=== PATIENT | male | born 1985 | race Caucasian/White ===

== ENCOUNTER 2020-07-14 11:45 | Emergency (ER) | payer OTHER, SELFPAY ==
[2020-07-14 12:41] VITALS: BP 145/67; PULSE 92; RESP 20; TEMP 37.2; O2SAT 94; BMI 60.6
--- NOTE | 2020-07-14 12:56 | XR_ITS ---
EXAMINATION: XR HAND, LEFT CLINICAL INFORMATION: Fall COMPARISON: None TECHNIQUE: PA, lateral, and oblique views of the left hand. FINDINGS: The bones and soft tissues are normal. No fracture. Alignment is anatomic. Joint spaces are maintained. No erosions or soft tissue calcifications. IMPRESSION: No fracture. No radiodense foreign body.
--- NOTE | 2020-07-14 13:04 | ED.EXTPRO ---
HPI - Extremity Problem General Chief complaint: Extremity Injury, Upper Stated complaint: Splinter Time Seen by Provider: 07/14/20 12:54 Source: patient Mode of arrival: ambulatory Limitations: no limitations History of Present Illness HPI Narrative: 34yoM presenting to the ED c c/o pain, swelling and redness to left hand ? splinter in his hand after he tripped over a pumkin and fell yesterday. Denies head injury or loc. Denies any other injuries, numbness, tinging, drainage or fevers. Related Data Previous Rx's Medication Instructions Recorded cephalexin [Keflex] 500 mg PO Q6H 10 Days #40 cap 07/14/20 doxycycline monohydrate 100 mg PO BID 10 Days #20 cap 07/14/20 tramadol 50 mg PO Q8H PRN #10 tab 07/14/20 Allergies Allergy/AdvReac Type Severity Reaction Status Date / Time No Known Allergies Allergy Mild N/A Verified 07/14/20 12:40 Review of Systems Review of Systems: Yes all other systems are reviewed and are negative Constitutional: Constitutional: Reports as per HPI Eyes: Eyes: Reports as per HPI ENT: Reports as per HPI Cardiovascular: Cardiovascular: Reports as per HPI Respiratory: Respiratory: Reports as per HPI Gastrointestinal: Gastrointestinal: Reports as per HPI Genitourinary: Genitourinary: Reports as per HPI Musculoskeletal: Musculoskeletal: Reports as per HPI Integumentary/Breasts: Skin/Breast: Reports as per HPI Neurologic: Reports as per HPI Psychiatric: Psychiatric: Reports as per HPI Endocrine: Endocrine: Reports as per HPI Hematologic/Lymphatic: Hematologic/Lymphatic: Reports as per HPI Allergic/Immunologic: Allergic/Immunologic: Reports as per HPI PMFSH Past Medical History Attestation statement: The following information was validated with the patient. Medical History Morbid obesity Sleep apnea Surgical History History of nasal surgery Hx of cholecystectomy Social History Social History Alcohol intake: never Smoking Status: Current every day smoker Smoked in Last 30 Days: Yes Use of substances other than those prescribed or required for medical reasons: Yes Substance Use Type: Marijuana Substance Use Frequency: Monthly Advance Directives: No Advance Directives Information Provided: Yes Physical Exam Vital Signs: Vital Signs: Vital Signs Temp Pulse Resp BP Pulse Ox 07/14/20 12:41 99.0 F 92 20 145/67 H 94 Body Mass Index 60.6 Const: General: cooperative, healthy appearing, comfortable, no acute distress, well developed, alert, awake and Physically active Nutritional Appearance: well nourished and obese Orientation/consciousness: patient oriented x3 Limitations: no limitations HENMT: Head: Yes normal to inspection, Yes No palpable skull fracture present, Yes normocephalic and Yes atraumatic Ears: hearing grossly normal bilaterally General nose exam: Normal external nose present Face and sinus: Yes normal facial exam Mouth: moist mucous membranes Eyes: General: appearance normal, both eyes and all related structures Visual Espitia: normal visual espitia by confrontation Alignment and Position: alignment normal Periorbital: periorbital findings normal Eyelids: Yes eyelids normal Conjunctivae: conjunctivae normal Sclerae: sclerae normal Pupils: Equal, round and reactive pupils present EOM: EOMs intact bilaterally Neck: Neck: Yes normal visual inspection, Yes full ROM, Yes no lymphadenopathy, Yes no meningeal signs, Yes trachea midline and Yes supple Chest: Chest palpation & inspection: normal inspection of the chest Resp: Effort & Inspection: normal respiratory effort and able to speak in complete sentences Auscultation: clear to auscultation bilaterally, no crackles, no rales, no rhonchi and no wheezes Cardio: Rate: regular rate Rhythm: regular rhythm Heart sounds: S1 normal heart sound present and S2 normal heart sound present Peripheral pulses: Peripheral pulses 2+ throughout GI: Inspection: Yes normal to inspection Palpation (GI): Soft to palpation, nontender and No hepatosplenomegaly present Percussion: Yes normal to percussion Auscultation: normal bowel sounds : General: Yes no CVA tenderness Back/Spine/Pelvis: Back: no CVA tenderness Cervical Spine: normal cervical lordosis and cervical ROM normal Thoracic/Lumbar Spine: thoracic and lumbar spine normal to inspection and thoraco-lumbar ROM normal Skin: General skin exam: no rashes or lesions noted, elasticity normal and turgor normal Trauma: no lacerations or abrasions Wounds: no wounds Hair: normal Nails: normal Neuro: General: patient oriented x3 and no meningeal signs Cranial nerves: Yes CN's II-XII intact bilaterally and Yes Equal, round and reactive pupils present Cognition (Neuro): normal cognition Gait exam (Neuro): Normal gait present Motor exam (neuro): 5/5 motor strength present throughout Extrem: General: Yes normal to inspection, Yes full ROM, Yes capillary refill normal, Yes no clubbing, cyanosis or edema, No no pedal edema, No no calf tenderness, Yes normal gait and No edema Right upper extremity: normal to inspection, full ROM, normal capillary refill and Extremity exam: right hand (puncture wound site c mild purulent drainage no obvious FB's noted. ) Details: normal capillary refill, neuromotor exam normal, neurosensory exam normal, tendon exam normal, tenderness, warmth and swelling; no edema Left upper extremity: normal to inspection, full ROM, normal capillary refill and hand (at the base of the thumb there is noted ); no edema Right lower extremity: normal to inspection, full ROM and normal capillary refill; no edema Left lower extremity: normal to inspection, full ROM and normal capillary refill; no edema Psych: Appearance: grossly normal and well kempt Mental Status: mental status grossly normal Speech and movement: Normal speech and movement present and Clear speech present Affect: normal affect Attitude: cooperative Thought process: Normal thought process present Thought content: Normal thought content present Insight: Good insight present (Psych) Judgement: Good judgement present (Psych) Procedures Abscess I/D Site: hand Side (if applicable): left Local Anesthetic: lidocaine 2% Amount of anesthesia used (mL): 5 Technique: needle aspiration and incised with blade Amount of fluid expressed (mL): 3 Sent for culture/gram staining?: No Irrigation: Yes Packing used?: none MDM - Extremity (Nontraumatic) Imaging Data hand xray: Attestation: I personally reviewed and interpreted this imaging study as follows: Radiologist's impression: IMPRESSION: No fracture. No radiodense foreign body. Discharge Plan Discharge Clinical Impression: Puncture wound of hand, Cellulitis, Abscess Patient Disposition: Home, Self-Care Instructions: Cellulitis (ED), Abscess (ED) Prescriptions: New doxycycline monohydrate 100 mg capsule 100 mg PO BID 10 Days Qty: 20 RF: 0 cephalexin [Keflex] 500 mg capsule 500 mg PO Q6H 10 Days Qty: 40 RF: 0 tramadol 50 mg tablet 50 mg PO Q8H PRN (Reason: pain) Qty: 10 RF: 0 Stand Alone Forms: Work/School Release Print Language: Nam[place]ian
[2020-07-14] MEDS: cephALEXin 500 MG CAPSULE PO (13:22)
[2020-07-14] MEDS: traMADoL HCL 50 MG TABLET PO (13:23)
--- NOTE | 2020-07-14 14:53 | PC.NURSE ---
Report given to oncoming nurse, Sara NORIEGA. No further questions from Sara NORIEGA. Provider aware.
[2020-07-14] MEDS: Lidocaine HCl 2 % MPF 5 ML VIAL SUBCUT (15:13)
--- NOTE | 2020-07-14 16:16 | PC.NURSE ---
PT LEFT HAND SPLINTER CLEANED NUMBED AND REMOVED BY CRISTEL CARRANZA. DSD APPLIED BY LILO KEYS.
== END 2020-07-14 16:09 | disposition home or self-care (01) ==
PROVIDERS: Emergency Provider Emergency Medicine
DX: S61.442A Puncture wound with foreign body of left hand, initial encounter (principal); W45.8XXA Other foreign body or object entering through skin, initial encounter; Y93.89 Activity, other specified; Y92.018 Other place in single-family (private) house as the place of occurrence of the external cause; Y99.9 Unspecified external cause status
CPT/HCPCS: 10120; 73130; 99283; 99284

== ENCOUNTER 2021-10-24 00:12 | Inpatient (IN) | payer OTHER, SELFPAY ==
[2021-10-24] VITALS (36 sets, daily range): BP systolic 107–174; BP diastolic 61–103; PULSE 68–115; RESP 14–26; TEMP 33–37.7; O2SAT 15–96; BMI 62.4; BMI 94.7
--- NOTE | ~2021-10-24 | XR_ITS ---
EXAMINATION: XR CHEST CLINICAL INFORMATION: Chest pain. Rule out pneumothorax. COMPARISON: Chest 10/25/2021 at 11:23 AM. TECHNIQUE: Frontal view of the chest was obtained. FINDINGS: Lungs are hypoexpanded with prominent pulmonary vascularity and patchy haziness in both lung bases likely airspace disease/effusion. There is a new endotracheal tube 4.6 cm above the trent. Right central venous catheter tip is in distal SVC. New enteric tube is likely below the diaphragm in stomach, however the distal segment of the enteric tube is not clearly visualized due to underpenetrated film. XR/XR chest 1V IMPRESSION: New endotracheal tube and enteric tube are likely in good position.. No change in right central venous catheter Bilateral lower lobe haziness is stable.
--- NOTE | ~2021-10-24 | XR_ITS ---
EXAMINATION: XR CHEST CLINICAL INFORMATION: Orogastric tube placement COMPARISON: Previous chest x-ray from yesterday TECHNIQUE: Frontal view of the chest was obtained. FINDINGS: There is an endotracheal tube with tip 5.5 cm above the trent. There is a nasogastric tube that projects over the proximal stomach. The tip is not seen. The cardiac silhouette is enlarged but stable. There is bilateral multilobar airspace disease, greatest at the lung bases. This does not appear appreciably changed. There may be small bilateral pleural effusions. There is no pneumothorax. No acute bone abnormality. XR/XR chest 1V IMPRESSION: Satisfactory position of endotracheal tube. Nasogastric tube tip projects over the proximal stomach, tip not seen. Stable enlargement of the cardiac silhouette and bilateral airspace disease.
--- NOTE | ~2021-10-24 | XR_ITS ---
EXAMINATION: XR CHEST CLINICAL INFORMATION: Shortness of breath COMPARISON: 09/14/2019 TECHNIQUE: Frontal view of the chest was obtained. FINDINGS: Lung volumes are low. Patchy diffuse bilateral airspace opacities. Possible small pleural effusions bilaterally. No pneumothorax. The cardiomediastinal silhouette appears prominent. XR/XR chest 1V IMPRESSION: Small pleural effusions. Patchy bilateral airspace opacities could be infectious or inflammatory. Alveolar edema is also a consideration.
--- NOTE | ~2021-10-24 | XR_ITS ---
EXAMINATION: XR CHEST CLINICAL INFORMATION: Status post intubation COMPARISON: October 24, 2021 and studies dating back to April 24, 2019 TECHNIQUE: AP portable view of the chest was obtained. FINDINGS: Endotracheal tube tip is seen approximately 4 cm above the trent. There is again noted to be diffuse interstitial and airspace disease which may be on the basis of infectious, inflammatory, or pulmonary edema process. No pneumothorax or significant pleural effusion. The cardiopericardial silhouette is enlarged. XR/XR chest 1V IMPRESSION: Endotracheal tube tip approximately 4 cm above the trent. No significant change in diffuse bilateral interstitial and airspace disease.
[2021-10-24 00:55] LABS: MANUAL DIFF FLAG NO
[2021-10-24 00:56] LABS: Basophils Percent Auto 0.1 % (0-2); Eosinophils Percent Auto 0.1 % (0-4); Hematocrit 50.1 % (42.0-52.0); Hemoglobin 14.3 g/dl (14.0-18.0); Imm Gran Abs Auto 0.26 X10*3/uL (0.00-0.03); Imm Gran Pct Auto 1.8 % (0.0-0.4); Lymphocytes Absolute Auto 1.7 X10*3/uL (1.2-4.9); Lymphocytes Percent Auto 11.2 % (20-40); Mean Corpuscular HGB Conc 28.5 g/dl (31.0-36.0); Mean Corpuscular Hemoglobin 25.7 pg (27.0-33.0); Mean Corpuscular Volume 90.1 fL (80.0-98.0); Mean Platelet Volume 9.6 fL (9.4-12.4); Monocytes Absolute Auto 1.3 X10*3/uL (0.1-1.2); Monocytes Percent Auto 8.6 % (2-11); Neutrophils Absolute Auto 11.6 x10*3/uL (2.0-8.3); Neutrophils Percent Auto 78.2 % (45-73); Platelet Count 300 X10*3/uL (160-400); Red Blood Count 5.56 X10*6/uL (4.60-5.80); Red Cell Distribution Width 19.5 % (11.0-16.0); White Blood Count 14.8 X10*3/uL (4.8-10.8)
[2021-10-24 01:11] LABS: INTERNATIONAL NORM RATIO 1.5 (0.9-1.1); Prothrombin Time 17.1 SEC (9.9-13.0)
[2021-10-24 01:12] LABS: Alanine Aminotransferase 32 U/L (0-40); Albumin Level 3.7 g/dL (3.5-5.0); Alkaline Phosphatase 81 U/L (39-117); Anion Gap 19 (12-20); Aspartate Amino Transferase 35 U/L (5-37); Bilirubin Total 0.8 mg/dL (0.0-1.0); Blood Urea Nitrogen 32 mg/dL (9-16); Calcium 8.9 mg/dL (8.4-10.2); Carbon Dioxide 26 mmol/L (22-29); Chloride 98 mmol/L (96-108); Creatinine Clr Calc Pharmacy 124.8; Estimated Glomerular Filt Rate 48; Glucose Random 117 mg/dL (60-115); Potassium 5.7 mmol/L (3.3-5.1); Sodium 137 mmol/L (135-145); Total Protein 7.4 g/dL (6.5-8.0)
[2021-10-24] MEDS: Naloxone HCl Nasal 4 MG SPRAY NOSTRILALT ×2 (01:14→04:39)
[2021-10-24] MEDS: ondansetron HCL 4 MG/2 ML VIAL IVPUSH ×2 (01:14→06:45)
--- NOTE | 2021-10-24 01:16 | ED_ITS ---
HPI - Overdose General Chief Complaint: Overdose Stated Complaint: CONFUSION Time Seen by Provider: 10/24/21 00:21 Source: patient, family and EMS Mode of arrival: EMS History of Present Illness HPI Narrative: This is a 36-year-old male who was brought in by EMS after they were called by his girlfriend when she found the patient unresponsive. EMS noted that patient was 60% on initial evaluation and was noted to have central cyanosis. They administered 4 mg of intranasal Narcan with good response and had to provide patient with 100% non-rebreather in order to maintain oxygen saturation. Patient denied any drug use or medical conditions to EMS and on arrival here although he was noted to be groggy and drowsy again reiterated that he does not use drugs denied drinking and denied any medical conditions. Related Data Previous Rx's Medication Instructions Recorded cephalexin 500 mg capsule (Keflex) 500 mg PO Q6H 10 Days #40 cap 07/14/20 doxycycline monohydrate 100 mg 100 mg PO BID 10 Days #20 cap 07/14/20 capsule tramadol 50 mg tablet 50 mg PO Q8H PRN #10 tab 07/14/20 Allergies Allergy/AdvReac Type Severity Reaction Status Date / Time No Known Allergies Allergy Mild N/A Verified 07/14/20 12:40 Review of Systems Review of Systems: Pertinent positives and negatives as stated in HPI 10 point review of systems is otherwise negative. [facility] Past Medical History Source: nursing notes reviewed Medical History Morbid obesity Sleep apnea Surgical History History of nasal surgery Hx of cholecystectomy Social History Social History Alcohol intake: never Use of substances other than those prescribed or required for medical reasons: Unknown Substance Use Type: Marijuana Advance Directives: No Advance Directives Information Provided: No Physical Exam Vital Signs: Vital Signs: Last Vital Signs Temp 97.8 F 10/24/21 05:55 Pulse 107 H 10/24/21 06:45 Resp 19 10/24/21 06:45 BP 163/103 H 10/24/21 06:45 Pulse Ox 90 L 10/24/21 06:45 BMI result Body Mass Index 94.7 VITAL SIGNS: Reviewed. GENERAL: Well developed, well nourished, in no acute distress. HEAD: Normocephalic/atraumatic EYES: PERRLA, EOMI OROPHARYNX: no oral lesions noted, posterior pharynx clear, dry mucosa NECK: Supple, no adenopathy LUNGS: Poor air entry, no appreciated rales, but rhonchi scattered, normal breath sounds. No adventitious sounds or accessory muscle use. SpO2<91> 100% non-rebreather CARDIOVASCULAR: Regular rate and rhythm without noted murmurs, no JVD but bilateral lower extremity pitting edema 1 to 2+ ABDOMEN: Obese, soft, non-tender, non-distended with bowel sounds. EXTREMITIES: Bilateral lower extremities demonstrate skin thickening and darkening consistent with chronic venous stasis SKIN: Inspection of the skin reveals no rashes, ulcerations, jaundice, pallor, or petechiae. NEUROLOGIC: GCS-14, following commands, and sensation to light touch were grossly intact x 4. Course Course Course Narrative: 36-year-old male with history and clinical presentation most consistent with likely overdose is a despite repeated then I will and was provided additional doses of Narcan in conjunction with Zofran. However despite these measures patient became more somnolent and it was felt that secondary to his sleepiness, body habitus the was likely retaining CO2 and was placed on initially CPAP but then transitioned to BiPAP with good response. On review of patient's prior charts he is noted to have sleep apnea. On review of all investigations he was noted to have a leukocytosis and initial lactic acid was elevated. He received 1 L IV fluids, antibiotics, although in total suspect that this may have been a component of reactivity due to patient's hypoxic states that he was found in. Attempts were made to obtain a urine sample by straight cath however this was unsuccessful. 0207: Soft restraints were put in place due to patient's agitation and continuing to remove his supplemental oxygen. Initial VBG showed CO2 retention with corresponding pH of 7.1 and on serial VBG although PCO 2 did improved pH continued at around 7.1. On review of subsequent chest x-ray despite patient being on BiPAP chest x-ray did appear to suggest a component of fluid overload in combination with elevated BNP. Patient was provided with 80 mg of Lasix. I discussed this case with Anesthesia as well as the oncoming provider, Dr Diaz, as patient was deemed to be a difficult intubation. Initial 4 mg additional IV Narcan was given for a total of 13 mg though on clinical exam pupils were not noted to be pinpoint with good respiratory response and improved tidal volumes. The decision was made to place patient on a Narcan drip. Patient signed out to Dr. Diaz and patient currently being evaluated by Anesthesia for intubation. Will discussed the case with Dr. Fernández as patient will require intubation and need to be admitted to the ICU. MDM - Overdose Lab Data Result diagrams: 10/24/21 00:51 10/24/21 00:51 Labs: Lab Results 10/24/21 10/24/21 10/24/21 Range/Units 00:22 00:51 00:51 WBC 14.8 H (4.8-10.8) X10*3/uL RBC 5.56 (4.60-5.80) X10*6/uL Hgb 14.3 (14.0-18.0) g/dl Hct 50.1 (42.0-52.0) % MCV 90.1 (80.0-98.0) fL MCH 25.7 L (27.0-33.0) pg MCHC 28.5 L (31.0-36.0) g/dl RDW 19.5 H (11.0-16.0) % Plt Count 300 (160-400) X10*3/uL MPV 9.6 (9.4-12.4) fL Immature Gran % (Auto) 1.8 H (0.0-0.4) % Neut % (Auto) 78.2 H (45-73) % Lymph % (Auto) 11.2 L (20-40) % [place] % (Auto) 8.6 (2-11) % Eos % (Auto) 0.1 (0-4) % Baso % (Auto) 0.1 (0-2) % Lymph # (Auto) 1.7 (1.2-4.9) X10*3/uL [place] # (Auto) 1.3 H (0.1-1.2) X10*3/uL Eos # (Auto) 0.0 (0.0-0.4) X10*3/uL Baso # (Auto) 0.0 (0.0-0.2) X10*3/uL Abs Immat Gran (auto) 0.26 H (0.00-0.03) X10*3/uL Absolute Neuts (auto) 11.6 H (2.0-8.3) x10*3/uL Absolute Nucleated RBC 0.290 H (0.0-0.012) X10*3/uL Nucleated RBC % (auto) 2.0 H (0.0-0.2) /100WBC PT (9.9-13.0) SEC INR (0.9-1.1) O2 Saturation % ABG pH at Pt Temp (7.35-7.45) ABG pH (Temp Correct) (7.35-7.45) ABG pCO2 at Pt Temp (32-45) mmHg ABG pCO2 (Temp Corrct (32-45) mmHg ABG pO2 at Pt Temp (83-108) mmHg ABG pO2 (Temp Correct (83-108) ABG HCO3 (22-26) mmol/L ABG Base Excess (Actual) mmol/L VBG pH (7.32-7.43) VBG pCO2 mmHg VBG pO2 mmHg VBG HCO3 (22-26) mmol/L VBG O2 Saturation % VBG Base Excess mmol/L Sodium 137 (135-145) mmol/L Potassium 5.7 H (3.3-5.1) mmol/L Chloride 98 (96-108) mmol/L Carbon Dioxide 26 (22-29) mmol/L Anion Gap 19 (12-20) BUN 32 H (9-16) mg/dL Creatinine 1.62 H (0.5-1.4) mg/dL Estim Creat Clear Calc 124.8 Estimated GFR 48 Random Glucose 117 H (60-115) mg/dL Lactic Acid (0.5-2.0) mmol/L Lactic Acid F/U @ 2Hr (0.5-2.0) mmol/L Calcium 8.9 (8.4-10.2) mg/dL Total Bilirubin 0.8 (0.0-1.0) mg/dL AST 35 (5-37) U/L ALT 32 (0-40) U/L Alkaline Phosphatase 81 (39-117) U/L B-Natriuretic Peptide 390 H (<100) pg/mL Total Protein 7.4 (6.5-8.0) g/dL Albumin 3.7 (3.5-5.0) g/dL Ethyl Alcohol mg/dL COVID-19 (ANNY) (Negative) COVID-19 Clin Com 10/24/21 10/24/21 10/24/21 Range/Units 00:55 00:55 00:55 WBC (4.8-10.8) X10*3/uL RBC (4.60-5.80) X10*6/uL Hgb (14.0-18.0) g/dl Hct (42.0-52.0) % MCV (80.0-98.0) fL MCH (27.0-33.0) pg MCHC (31.0-36.0) g/dl RDW (11.0-16.0) % Plt Count (160-400) X10*3/uL MPV (9.4-12.4) fL Immature Gran % (Auto) (0.0-0.4) % Neut % (Auto) (45-73) % Lymph % (Auto) (20-40) % [place] % (Auto) (2-11) % Eos % (Auto) (0-4) % Baso % (Auto) (0-2) % Lymph # (Auto) (1.2-4.9) X10*3/uL [place] # (Auto) (0.1-1.2) X10*3/uL Eos # (Auto) (0.0-0.4) X10*3/uL Baso # (Auto) (0.0-0.2) X10*3/uL Abs Immat Gran (auto) (0.00-0.03) X10*3/uL Absolute Neuts (auto) (2.0-8.3) x10*3/uL Absolute Nucleated RBC (0.0-0.012) X10*3/uL Nucleated RBC % (auto) (0.0-0.2) /100WBC PT 17.1 H (9.9-13.0) SEC INR 1.5 H (0.9-1.1) O2 Saturation % ABG pH at Pt Temp (7.35-7.45) ABG pH (Temp Correct) (7.35-7.45) ABG pCO2 at Pt Temp (32-45) mmHg ABG pCO2 (Temp Corrct (32-45) mmHg ABG pO2 at Pt Temp (83-108) mmHg ABG pO2 (Temp Correct (83-108) ABG HCO3 (22-26) mmol/L ABG Base Excess (Actual) mmol/L VBG pH (7.32-7.43) VBG pCO2 mmHg VBG pO2 mmHg VBG HCO3 (22-26) mmol/L VBG O2 Saturation % VBG Base Excess mmol/L Sodium (135-145) mmol/L Potassium (3.3-5.1) mmol/L Chloride (96-108) mmol/L Carbon Dioxide (22-29) mmol/L Anion Gap (12-20) BUN (9-16) mg/dL Creatinine (0.5-1.4) mg/dL Estim Creat Clear Calc Estimated GFR Random Glucose (60-115) mg/dL Lactic Acid 3.4 H* (0.5-2.0) mmol/L Lactic Acid F/U @ 2Hr (0.5-2.0) mmol/L Calcium (8.4-10.2) mg/dL Total Bilirubin (0.0-1.0) mg/dL AST (5-37) U/L ALT (0-40) U/L Alkaline Phosphatase (39-117) U/L B-Natriuretic Peptide (<100) pg/mL Total Protein (6.5-8.0) g/dL Albumin (3.5-5.0) g/dL Ethyl Alcohol mg/dL COVID-19 (ANNY) Negative (Negative) COVID-19 Clin Com See Note 10/24/21 10/24/21 10/24/21 Range/Units 02:09 02:17 03:40 WBC (4.8-10.8) X10*3/uL RBC (4.60-5.80) X10*6/uL Hgb (14.0-18.0) g/dl Hct (42.0-52.0) % MCV (80.0-98.0) fL MCH (27.0-33.0) pg MCHC (31.0-36.0) g/dl RDW (11.0-16.0) % Plt Count (160-400) X10*3/uL MPV (9.4-12.4) fL Immature Gran % (Auto) (0.0-0.4) % Neut % (Auto) (45-73) % Lymph % (Auto) (20-40) % [place] % (Auto) (2-11) % Eos % (Auto) (0-4) % Baso % (Auto) (0-2) % Lymph # (Auto) (1.2-4.9) X10*3/uL [place] # (Auto) (0.1-1.2) X10*3/uL Eos # (Auto) (0.0-0.4) X10*3/uL Baso # (Auto) (0.0-0.2) X10*3/uL Abs Immat Gran (auto) (0.00-0.03) X10*3/uL Absolute Neuts (auto) (2.0-8.3) x10*3/uL Absolute Nucleated RBC (0.0-0.012) X10*3/uL Nucleated RBC % (auto) (0.0-0.2) /100WBC PT (9.9-13.0) SEC INR (0.9-1.1) O2 Saturation % ABG pH at Pt Temp (7.35-7.45) ABG pH (Temp Correct) (7.35-7.45) ABG pCO2 at Pt Temp (32-45) mmHg ABG pCO2 (Temp Corrct (32-45) mmHg ABG pO2 at Pt Temp (83-108) mmHg ABG pO2 (Temp Correct (83-108) ABG HCO3 (22-26) mmol/L ABG Base Excess (Actual) mmol/L VBG pH 7.17 L* (7.32-7.43) VBG pCO2 99 mmHg VBG pO2 127 mmHg VBG HCO3 37 H (22-26) mmol/L VBG O2 Saturation 98.0 % VBG Base Excess 4.2 mmol/L Sodium (135-145) mmol/L Potassium (3.3-5.1) mmol/L Chloride (96-108) mmol/L Carbon Dioxide (22-29) mmol/L Anion Gap (12-20) BUN (9-16) mg/dL Creatinine (0.5-1.4) mg/dL Estim Creat Clear Calc Estimated GFR Random Glucose (60-115) mg/dL Lactic Acid (0.5-2.0) mmol/L Lactic Acid F/U @ 2Hr 1.1 (0.5-2.0) mmol/L Calcium (8.4-10.2) mg/dL Total Bilirubin (0.0-1.0) mg/dL AST (5-37) U/L ALT (0-40) U/L Alkaline Phosphatase (39-117) U/L B-Natriuretic Peptide (<100) pg/mL Total Protein (6.5-8.0) g/dL Albumin (3.5-5.0) g/dL Ethyl Alcohol < 10 mg/dL COVID-19 (ANNY) (Negative) COVID-19 Clin Com 10/24/21 10/24/21 Range/Units 03:41 05:59 WBC (4.8-10.8) X10*3/uL RBC (4.60-5.80) X10*6/uL Hgb (14.0-18.0) g/dl Hct (42.0-52.0) % MCV (80.0-98.0) fL MCH (27.0-33.0) pg MCHC (31.0-36.0) g/dl RDW (11.0-16.0) % Plt Count (160-400) X10*3/uL MPV (9.4-12.4) fL Immature Gran % (Auto) (0.0-0.4) % Neut % (Auto) (45-73) % Lymph % (Auto) (20-40) % [place] % (Auto) (2-11) % Eos % (Auto) (0-4) % Baso % (Auto) (0-2) % Lymph # (Auto) (1.2-4.9) X10*3/uL [place] # (Auto) (0.1-1.2) X10*3/uL Eos # (Auto) (0.0-0.4) X10*3/uL Baso # (Auto) (0.0-0.2) X10*3/uL Abs Immat Gran (auto) (0.00-0.03) X10*3/uL Absolute Neuts (auto) (2.0-8.3) x10*3/uL Absolute Nucleated RBC (0.0-0.012) X10*3/uL Nucleated RBC % (auto) (0.0-0.2) /100WBC PT (9.9-13.0) SEC INR (0.9-1.1) O2 Saturation 79.0 % ABG pH at Pt Temp 7.15 L* (7.35-7.45) ABG pH (Temp Correct) 7.16 L* (7.35-7.45) ABG pCO2 at Pt Temp 116 H* (32-45) mmHg ABG pCO2 (Temp Corrct 112 H* (32-45) mmHg ABG pO2 at Pt Temp 59 L (83-108) mmHg ABG pO2 (Temp Correct 57 L (83-108) ABG HCO3 41 H (22-26) mmol/L ABG Base Excess (Actual) 6.7 mmol/L VBG pH 7.18 L* (7.32-7.43) VBG pCO2 87 mmHg VBG pO2 178 mmHg VBG HCO3 33 H (22-26) mmol/L VBG O2 Saturation 99.0 % VBG Base Excess 1.2 mmol/L Sodium (135-145) mmol/L Potassium (3.3-5.1) mmol/L Chloride (96-108) mmol/L Carbon Dioxide (22-29) mmol/L Anion Gap (12-20) BUN (9-16) mg/dL Creatinine (0.5-1.4) mg/dL Estim Creat Clear Calc Estimated GFR Random Glucose (60-115) mg/dL Lactic Acid (0.5-2.0) mmol/L Lactic Acid F/U @ 2Hr (0.5-2.0) mmol/L Calcium (8.4-10.2) mg/dL Total Bilirubin (0.0-1.0) mg/dL AST (5-37) U/L ALT (0-40) U/L Alkaline Phosphatase (39-117) U/L B-Natriuretic Peptide (<100) pg/mL Total Protein (6.5-8.0) g/dL Albumin (3.5-5.0) g/dL Ethyl Alcohol mg/dL COVID-19 (ANNY) (Negative) COVID-19 Clin Com ECG Data Attestation: I personally reviewed and interpreted this ECG as follows: Prior ECG tracings: available for review (11/10/2007) Interpretation: Sinus tachycardia, HR-103, incomplete right bundle branch block, no STEMI, [place]/QRS/QTC are within normal limits. Critical Care Time Critical Care Time Critical Care Time: Yes Total Critical Care Time: 45 Attestation: I personally attest to this time spent taking care of the patient. Discharge Plan Discharge Clinical Impression: Morbid obesity, Sleep apnea, Drug overdose, Acute respiratory failure, Pulmon amanda edema, Pneumonia Patient Disposition: Admitted As Inpatient
[2021-10-24 01:17] LABS: COVID-19 Test Negative (Negative)
--- NOTE | 2021-10-24 01:18 | ECG_ITS ---
Test Reason : OD Blood Pressure : / mmHG Vent. Rate : 103 BPM Atrial Rate : 103 BPM P-R Int : 150 ms QRS Dur : 094 ms QT Int : 348 ms P-R-T Axes : 056 088 068 degrees QTc Int : 455 ms Sinus tachycardia Incomplete right bundle branch block Borderline ECG When compared with ECG of 10-NOV-2007 23:44, Vent. rate has increased BY 50 BPM Incomplete right bundle branch block is now Present Referred By: Thania Coello Electronically Signed By:Ede Zavala
--- NOTE | 2021-10-24 01:19 | PC.NURSE ---
pt chemical cell changer into hospital attire. pt placed in bariatric bed, pt de-stating placed on high flow. Lactic acid report to be 3.4. Provider is aware.
[2021-10-24 01:22] LABS: Lactic Acid 3.4 mmol/L (0.5-2.0)
[2021-10-24 01:48] LABS: B Type Natriuretic Peptide 390 pg/mL (<100)
[2021-10-24] MEDS: Piperacillin Sodium/Tazobactam 3.375 GM in 0.9 % Sodium Chloride 50 ML IV (02:07)
[2021-10-24] MEDS: 0.9 % Sodium Chloride 1,000 ML 999 ML IV (02:09)
--- NOTE | 2021-10-24 02:10 | PC.NURSE ---
Respiratory in to help maintain 02.Provider aware and into assess pt. Pt placed on soft restraints to keep O2 on.
[2021-10-24 02:32] LABS: VBG Base Excess 4.2 mmol/L; VBG HCO3 37 mmol/L (22-26); VBG pCO2 99 mmHg; VBG pH 7.17 (7.32-7.43); VBG pO2 127 mmHg
[2021-10-24 02:33] LABS: Venous Blood Gas Refer to POC result
[2021-10-24 02:34] LABS: Ethanol < 10 mg/dL
[2021-10-24 02:59] LABS: Reflex Lactate? Lactic Acid Added
[2021-10-24 04:03] LABS: ~Lactic Acid-LAB USE ONLY 1.1 mmol/L (0.5-2.0)
[2021-10-24 04:42] LABS: VBG Base Excess 1.2 mmol/L; VBG HCO3 33 mmol/L (22-26); VBG pCO2 87 mmHg; VBG pH 7.18 (7.32-7.43); VBG pO2 178 mmHg
--- NOTE | 2021-10-24 04:45 | PC.NURSE ---
Resp. into assist pt and adjust bipap setting. Will continue to monitor.
[2021-10-24 04:49] LABS: Venous Blood Gas Refer to POC result
--- NOTE | 2021-10-24 05:05 | PC.NURSE ---
provider in with respiratory trying to adjust O2.
[2021-10-24] MEDS: Naloxone HCl 2 MG/2 ML SYRINGE 1 MG IVPUSH (05:37)
--- NOTE | 2021-10-24 05:42 | PC.NURSE ---
pt continue to de-sat into the 79's and 80's provider is hernandez and so is respiratory, Medicated per mar. Will continue to monitor per provider.
[2021-10-24] MEDS: Furosemide 100 MG/10 ML VIAL 80 MG IVPUSH (05:46)
--- NOTE | 2021-10-24 05:54 | PC.NURSE ---
Respiratory at the bedside pt continue to de-sats, provider room re-directing pt to take deep breath.
[2021-10-24 06:06] LABS: ABG Refer to POC result
[2021-10-24 06:08] LABS: ABG Base Excess 6.7 mmol/L; ABG HCO3 41 mmol/L (22-26); ABG pCO2 116 mmHg (32-45); ABG pCO2 TC 112 mmHg (32-45); ABG pH 7.15 (7.35-7.45); ABG pH TC 7.16 (7.35-7.45); ABG pO2 59 mmHg (83-108); ABG pO2 TC 57 (83-108)
[2021-10-24] MEDS: Naloxone HCl 2 MG/2 ML SYRINGE 4 MG IVPUSH ×2 (06:16→07:05)
--- NOTE | 2021-10-24 06:29 | PC.NURSE ---
Girard attempt and was unsuccessful, hematuria after removing. provider is aware. After several hours no blood noted.
--- NOTE | 2021-10-24 06:41 | PC.NURSE ---
pt have soft restraints, skin check completed, skin intact, positive Cms
--- NOTE | 2021-10-24 06:47 | PC.NURSE ---
After pt being medicated with 4mg of Iv narcan pt become more responsive and alert. Improvement of O2 sat.
--- NOTE | 2021-10-24 07:15 | PC.NURSE ---
Called sister chika [phone]. Plan is for pt to be intubated and have a narcan drip.
--- NOTE | 2021-10-24 07:39 | P.PCANES_ITS ---
Procedures Date of Service Date of Service: 10/24/21 Abscess I/D Site: other Sedation/analgesia: other Intubation Intubation Comments: 36 yo,700 lbs male with probable drug overdose and bilate ral pulm. aspiration in resp. failure, ER requested urgent intubation.After preoxygenation SaO2 reached max 96%, pharynx was sprayed with 1% Lido 10 ml and Ketamine given iv watcing Pt's response. 30, then 20mg were given and #8 ETT placed easily with Glidescope visualising VCs. Bilateral BSs were confirmed, Pt was put on mech vent by resp therapist present. Consent for Procedure: Emergent-no informed consent obtained Time out performed: Yes Sedative: ketamine Mg given: 50 Laryngoscope: fiber optic video scope ET tube size: 8 Tube secured depth (cm): 24 Tube secured location: lips Tube placement confirmation: visualized tube passing through cords Patient tolerated procedure: well Intubation complications: none
[2021-10-24] MEDS: Ketamine HCl 500 MG/5 ML VIAL IVPUSH (08:02)
[2021-10-24] MEDS: Lactated Ringers 500 ML 999 ML IV (08:03)
--- NOTE | 2021-10-24 08:06 | PC.NURSE ---
Upon initial assessment by obtunded on bipap, awake to tactile and loud verbal stimuli. Narcan 4mg administered by this RN at 0705 with minimal effect. Anaesthesia at bedside discussing awake intubation and preparation for procedure. Pt was then successfully intubated with size 8.0 tube, 25 BJ. Ketamine 50mg ivp was given by anaesthesia for sedation +CXR placement to confirm. RT at bedside adjusting vent settings as needed, vent setting at this time 100% fi02, 18.0 peep, 750.
[2021-10-24] MEDS: Albuterol Sulfate (0.083%) 2.5 MG/3 ML VIAL.NEB 7.5 MG INHALE (08:14)
--- NOTE | 2021-10-24 08:16 | MHC.CARE ---
Addendum entered by Charlene Mead, [facility] 10/24/21 11:33: recovery support Original Note: Pt should be offered SUDE when medically stable.
--- NOTE | 2021-10-24 08:24 | PC.NURSE ---
Dr Fernández at bedside for evaluation at this time This RN update sister Chely [phone]
[2021-10-24] MEDS: Ampicillin Sodium/Sulbactam Na 3 GM in 0.9 % Sodium Chloride 100 ML IV ×3 (08:38→20:49)
--- NOTE | 2021-10-24 08:47 | PC.NURSE ---
NSR on monitor rate 70s, see vitals print out for further details.
[2021-10-24 08:53] LABS: Glucose, Whole Blood 97 mg/dL (60-115)
[2021-10-24] MEDS: propofoL 1,000 MG/100 ML VIAL 41.24 MG IVCONT ×6 (09:15→23:32)
[2021-10-24 09:38] LABS: MANUAL DIFF FLAG NO
[2021-10-24 09:41] LABS: Basophils Absolute Auto 0.1 X10*3/uL (0.0-0.2); Basophils Percent Auto 0.3 % (0-2); Hematocrit 48.9 % (42.0-52.0); Hemoglobin 14.2 g/dl (14.0-18.0); Imm Gran Abs Auto 0.74 X10*3/uL (0.00-0.03); Imm Gran Pct Auto 4.2 % (0.0-0.4); Lymphocytes Absolute Auto 1.6 X10*3/uL (1.2-4.9); Lymphocytes Percent Auto 8.8 % (20-40); Mean Corpuscular Hemoglobin 25.9 pg (27.0-33.0); Mean Corpuscular Volume 89.1 fL (80.0-98.0); Mean Platelet Volume 9.9 fL (9.4-12.4); Monocytes Absolute Auto 1.5 X10*3/uL (0.1-1.2); Monocytes Percent Auto 8.4 % (2-11); Neutrophils Absolute Auto 13.9 x10*3/uL (2.0-8.3); Neutrophils Percent Auto 78.3 % (45-73); Platelet Count 247 X10*3/uL (160-400); Red Blood Count 5.49 X10*6/uL (4.60-5.80); Red Cell Distribution Width 19.3 % (11.0-16.0); White Blood Count 17.7 X10*3/uL (4.8-10.8)
[2021-10-24 09:44] LABS: NRBC Pct Auto 5.6 /100WBC (0.0-0.2)
[2021-10-24] MEDS: Midazolam HCl/PF 2 MG/2 ML VIAL 6 MG IVPUSH (09:56)
[2021-10-24 10:07] LABS: Glucose, Whole Blood 108 mg/dL (60-115)
[2021-10-24 10:14] LABS: Albumin Level 3.3 g/dL (3.5-5.0); Anion Gap 15 (12-20); Blood Urea Nitrogen 32 mg/dL (9-16); Calcium 8.6 mg/dL (8.4-10.2); Carbon Dioxide 27 mmol/L (22-29); Chloride 101 mmol/L (96-108); Estimated Glomerular Filt Rate 58; Glucose Random 112 mg/dL (60-115); Magnesium 2.4 mg/dL (1.6-2.6); Phosphorus 3.5 mg/dL (2.7-4.5); Sodium 137 mmol/L (135-145)
[2021-10-24] MEDS: Famotidine/PF 20 MG/2 ML VIAL IVPUSH (10:32)
[2021-10-24] MEDS: acetaZOLAMIDE sodium 500 MG VIAL 250 MG IVPUSH (10:32)
[2021-10-24] MEDS: Chlorhexidine Gluc Oral Rinse 15 ML MOUTHWASH BUCCAL ×3 (10:32→23:34)
[2021-10-24] MEDS: Heparin Sodium,Porcine 5,000 UNIT/ML VIAL 5000 UNIT SUBCUT ×3 (10:32→23:34)
--- NOTE | 2021-10-24 10:32 | PHA.MEDREC ---
med rec complete, not on any medications. spoke to contact significant other and reported that he occasionally has taken a stool softener, and tylenol but not on any regular scheduled prescriptions medications. Pharmacy Consult ? Medication Reconciliation Pharmacy has completed the medication reconciliation.
[2021-10-24 10:46] LABS: Appearance Urine CLEAR; Color Urine YELLOW; Glucose Urine UA NEG (NEG); Leukocyte Esterase Urine NEG (NEG); Nitrite Urine NEG (NEG); PH 5.5 (5.0-8.0); UACC Culture Trigger NO; Urine Blood TRACE (NEG); Urine Ketones NEG (NEG); Urine Protein TRACE MG/DL (NEG-TRACE)
[2021-10-24 10:58] LABS: Bacteria Urine 1+ /LPF; UACC CULT YES
[2021-10-24 10:59] LABS: Granular Casts Urine 0-2 /LPF; Squamous Epithelial Cell Urine 1+ /LPF
--- NOTE | 2021-10-24 11:00 | CA_ITS ---
Transthoracic Echocardiogram Patient (Last, First, Middle): Florin Mann, Gender: Male Date of : 1985 Age: 36 Procedure Date: 10/24/2021 Procedure Type: Transthoracic Echocardiogram Location: ICU Height: 190.5 cm Weight: 343.38 kg BSA: 3.86 m2 Heart Rate: bpm BP: 148 / 82 mmHg [facility] Consultant: Referring MD: Emiliano Fernández MD Symptoms: dyspnea, 757 LB Study Quality: Technically Difficult/Contrast Conclusions: - Technically limited study due to body habitus. - Poorly visualized left ventricle and overall function appears reduced probably in the range of 30-35%. Despite using definity the wall motion abnormality cannot be ruled out. - Right ventricle is at least moderately dilated and systolic function is moderately reduced. - PASP = 32 + right atrial pressure. Indeterminate right atrial pressure because patient is intubated. Findings Procedure Information Contrast agent, definity, is being given per protocol without apparent complications. Left Ventricle The left ventricle was not well visualized. Normal left ventricular cavity size. There is mildly increased left ventricular wall thickness. The left ventricular systolic function is moderately decreased. The visually estimated ejection fraction is between 30-35%. Regional wall motion abnormalities can not be excluded due to suboptimal endocardial definition. Diastolic function is indeterminate on the basis of available data. Right Ventricle Moderately increased right ventricular cavity size. There is moderately decreased right ventricular systolic function. Atria The left atrium was not well visualized. Aortic Valve The aortic valve was not well visualized. There is no aortic valve stenosis. There is no aortic valve regurgitation. Mitral Valve The mitral valve was not well visualized. There is no mitral valve regurgitation. There is no mitral valve stenosis. Pulmonic Valve The pulmonic valve was not well visualized. Tricuspid Valve The tricuspid valve was not well visualized. Indeterminate right atrial pressure. Great Vessels All visible segments of the aorta are normal in size. The pulmonary artery was not well visualized. Venous The inferior vena cava is dilated and does not collapse with inspiration. Pericardium/Pleural There is no evidence of pericardial effusion. Prior Study Comparison No prior study available for comparison. Measurements 2D Linear Measurements IVSd: 1.10 0.6-0.9/0.6-1.0 cm LVIDd: 5.41 3.9-5.3/4.2-5.9 cm LVIDd Index: 1.40 2.4-3.2/2.2-3.1 cm/m2 LVIDs: 3.42 2.0-3.6 cm LVPWd: 1.07 0.7-1.1 cm Ao Root: 3.30 2.1-3.5 cm LA Diam: 4.00 2.7-3.8/3.0-4.0 cm LAIDs Index: 1.04 1.5-2.3 cm/m2 LV Mass: 288.27 67-162/88-224 g LV Mass Index: 74.68 43-95/49-115 g/m2 LVOT Diam: 2.50 3.0+(-)1.3 cm 2D Systolic Function EF 4C: 43.10 >55% EF 2C: 30.80 >55% EF BiP: 36.00 >55% Mitral Valve MV Pk E: 0.73 MV Decel Time: 189.00 E'Lateral: 12.10 E'Medial: 7.62 E/E' Med: 9.60 E/E' Lat: 6.10 PHT: 55.00 MVA PHT: 4.00 Decel Dimmit: 3.88 Aortic Valve AoV Pk Sourav: 1.02 AoV Mn Sourav: 0.73 AoV VTI: 0.21 AoV Pk Grad: 4.00 Aov Mn Grad: 3.00 JULIET Cont.VTI: 3.19 LVOT LVOT Pk Sourav: 0.84 LVOT Mn Sourav: 0.58 LVOT VTI: 0.13 LVOT Pk Grad: 3.00 LVOT Mn Grad: 2.00 LVOT Diam: 2.50 LVOT Area: 4.91 Diastolic Function MV Pk E: 0.73 E'Medial: 7.62 E/E' Med: 9.60 E' Laterial: 12.10 E/E' Lat: 6.10 Tricuspid Valve TR Pk Osurav: 2.58 TR Pk Grad: 27.00 Great Vessels Aorta Ao Root-2D: 3.30 2.0-3.7 cm Ao Asc: 3.00 2.1-3.4 cm Pulmonary Valve PV Pk Sourav: 0.91 Peak PV Grad: 3.00 Updated in Other Vendor System with Status of Final Ede Zavala MD electronically signed on 10/24/2021 2:53:39 PM with status of Final
[2021-10-24 11:05] LABS: Amphetamine Screen Urine Not Detected (Not Detect); Barbiturates, Urine Not Detected (Not Detect); Benzodiazepines Screen Urine POSITIVE (Not Detect); Cannabinoid Screen Urine Not Detected (Not Detect); Cocaine Screen Urine Not Detected (Not Detect); Fentanyl, urine Not Detected (Not Detect); Opiate Screen Urine Not Detected (Not Detect); Phencyclidine Screen Urine Not Detected (Not Detect)
[2021-10-24] MEDS: Furosemide 200 MG in 0.9 % Sodium Chloride 80 ML IVCONT (11:11)
[2021-10-24] MEDS: propofoL 1,000 MG/100 ML VIAL 61.87 MG IVCONT ×2 (11:11→12:20)
--- NOTE | 2021-10-24 13:15 | P.HPCC_ITS ---
History of Present Illness Date of Service: 10/24/21 Chief Complaint: Acute respiratory failure 36-year-old gentleman with underlying super morbid obesity with BMI of 95, weight 757 lb, admitted on 10/24/2021 after he was found unresponsive by his girlfriend and brought to the emergency room. EMS with transport administered Narcan with minimal improvements. In emergency room patient had transient response to multiple doses of Narcan, however his respiratory status continued to deteriorate and he was intubated and transferred to the intensive care unit. Review of Systems Review of Systems: Yes unobtainable due to endotracheal tube and Unobtainable due to mental condition PMFSH Past Medical History Medical History Morbid obesity Sleep apnea Surgical History Surgical History History of nasal surgery Hx of cholecystectomy Social History Social History Alcohol intake: never Use of substances other than those prescribed or required for medical reasons: Unknown Substance Use Type: Marijuana Advance Directives: No Advance Directives Information Provided: No Meds Allergies Allergy/AdvReac Type Severity Reaction Status Date / Time No Known Allergies Allergy Mild N/A Verified 07/14/20 12:40 Active Medications: Current Medications Chlorhexidine Gluconate (Chlorhexidine Gluc Oral Rinse 15 Ml Mouthwash) 15 ml BUCCAL Q8H REPLACED BY [facility] Last Admin: 10/24/21 10:32 Dose: 15 ml Documented by: Dextrose (Dextrose 50 % 25 Gm/50 Ml Syringe) 25 gm IVPUSH Q30M PRN PRN Reason: Nursing Actions in Insulin Infusion Protocol Famotidine (Famotidine/Pf 20 Mg/2 Ml Vial) 20 mg IVPUSH DAILY REPLACED BY [facility] Last Admin: 10/24/21 10:32 Dose: 20 mg Documented by: Heparin Sodium (Porcine) (Heparin Sodium,Porcine 5,000 Unit/Ml Vial) 5,000 unit SUBCUT Q8H REPLACED BY [facility] Last Admin: 10/24/21 10:32 Dose: 5,000 unit Documented by: Propofol (Diprivan) 1,000 mg in 100 mls @ 0 mls/hr IVCONT .Q0M REPLACED BY [facility]; Protocol Last Admin: 10/24/21 12:20 Dose: 30 mcg/kg/min, 61.87 mls/hr Documented by: Ampicillin Sodium/Sulbactam (Sodium 3 gm/ Sodium Chloride) 100 mls @ 200 mls/hr IV Q6H REPLACED BY [facility] Last Infusion: 10/24/21 09:58 Dose: Infused Documented by: Furosemide 200 mg/ Sodium (Chloride) 100 mls @ 1 mls/hr IVCONT .Q24H REPLACED BY [facility] Last Admin: 10/24/21 11:11 Dose: 2 mg/hr, 1 mls/hr Documented by: Albumin Human (Kedbumin 25 %) 100 mls @ 100 mls/hr IV Q6H REPLACED BY [facility] Stop: 10/25/21 08:14 Home Medications Medication Instructions Recorded Confirmed Last Taken Type No Known Home Meds 10/24/21 10/24/21 Unknown History Physical Exam 2 Vital Signs: Vital Signs: Last Vital Signs Temp 99.3 F 10/24/21 12:00 Pulse 76 10/24/21 12:00 Resp 16 10/24/21 12:00 BP 125/71 10/24/21 12:00 Pulse Ox 93 10/24/21 12:00 BMI result Body Mass Index 94.7 Const: General: no acute distress and other (Sedated on the vent) Nutritional Appearance: obese morbidly obese Eyes: Sclerae: sclerae normal EOM: EOMs intact bilaterally Neck: Neck: Yes no lymphadenopathy, Yes trachea midline and Yes supple Resp: Auscultation: other (Distant breath sounds) Cardio: Rate: regular rate Rhythm: regular rhythm Heart sounds: no gallops, no murmurs and no rubs GI: Palpation (GI): Soft to palpation and Other GI palpation findings present ( Nontender) Auscultation: normal bowel sounds Extrem: General: No clubbing, No cyanosis and Yes pedal edema (1+ bilateral) Results Labs CBC and Chem 7: 10/24/21 09:34 10/24/21 09:34 Labs: Laboratory Results - last 24 hr 10/24/21 10/24/21 10/24/21 00:22 00:51 00:51 MCV 90.1 MCH 25.7 L MCHC 28.5 L RDW 19.5 H Plt Count 300 MPV 9.6 Immature Gran % (Auto) 1.8 H Neut % (Auto) 78.2 H Lymph % (Auto) 11.2 L [place] % (Auto) 8.6 Eos % (Auto) 0.1 Baso % (Auto) 0.1 Lymph # (Auto) 1.7 [place] # (Auto) 1.3 H Eos # (Auto) 0.0 Baso # (Auto) 0.0 Abs Immat Gran (auto) 0.26 H Absolute Neuts (auto) 11.6 H Absolute Nucleated RBC 0.290 H Nucleated RBC % (auto) 2.0 H Smear Path Review SEE NOTE PT INR O2 Saturation ABG pH at Pt Temp ABG pH (Temp Correct) ABG pCO2 at Pt Temp ABG pCO2 (Temp Corrct ABG pO2 at Pt Temp ABG pO2 (Temp Correct ABG HCO3 ABG Base Excess (Actual) VBG pH VBG pCO2 VBG pO2 VBG HCO3 VBG O2 Saturation VBG Base Excess Carbon Dioxide 26 Anion Gap 19 Estim Creat Clear Calc 124.8 Estimated GFR 48 POC Glucose Random Glucose 117 H Lactic Acid Lactic Acid F/U @ 2Hr Calcium 8.9 Phosphorus Magnesium Total Bilirubin 0.8 AST 35 ALT 32 Alkaline Phosphatase 81 B-Natriuretic Peptide 390 H Total Protein 7.4 Albumin 3.7 Urine Color Urine Appearance Urine pH Ur Specific [place] Urine Protein Urine Glucose (UA) Urine Ketones Urine Blood Urine Nitrite Ur Leukocyte Esterase Urine RBC Urine WBC Ur Squamous Epith Cells Urine Bacteria Hyaline Casts Granular Casts Urine Opiates Screen Urine Fentanyl Screen Ur Barbiturates Screen Ur Phencyclidine Scrn Ur Amphetamines Screen U Benzodiazepines Scrn Urine Cocaine Screen U Marijuana (THC) Screen Ethyl Alcohol COVID-19 (ANNY) COVID-19 Clin Com 10/24/21 10/24/21 10/24/21 00:55 00:55 00:55 MCV MCH MCHC RDW Plt Count MPV Immature Gran % (Auto) Neut % (Auto) Lymph % (Auto) [place] % (Auto) Eos % (Auto) Baso % (Auto) Lymph # (Auto) [place] # (Auto) Eos # (Auto) Baso # (Auto) Abs Immat Gran (auto) Absolute Neuts (auto) Absolute Nucleated RBC Nucleated RBC % (auto) Smear Path Review PT 17.1 H INR 1.5 H O2 Saturation ABG pH at Pt Temp ABG pH (Temp Correct) ABG pCO2 at Pt Temp ABG pCO2 (Temp Corrct ABG pO2 at Pt Temp ABG pO2 (Temp Correct ABG HCO3 ABG Base Excess (Actual) VBG pH VBG pCO2 VBG pO2 VBG HCO3 VBG O2 Saturation VBG Base Excess Carbon Dioxide Anion Gap Estim Creat Clear Calc Estimated GFR POC Glucose Random Glucose Lactic Acid 3.4 H* Lactic Acid F/U @ 2Hr Calcium Phosphorus Magnesium Total Bilirubin AST ALT Alkaline Phosphatase B-Natriuretic Peptide Total Protein Albumin Urine Color Urine Appearance Urine pH Ur Specific [place] Urine Protein Urine Glucose (UA) Urine Ketones Urine Blood Urine Nitrite Ur Leukocyte Esterase Urine RBC Urine WBC Ur Squamous Epith Cells Urine Bacteria Hyaline Casts Granular Casts Urine Opiates Screen Urine Fentanyl Screen Ur Barbiturates Screen Ur Phencyclidine Scrn Ur Amphetamines Screen U Benzodiazepines Scrn Urine Cocaine Screen U Marijuana (THC) Screen Ethyl Alcohol COVID-19 (ANNY) Negative COVID-19 Clin Com See Note 10/24/21 10/24/21 10/24/21 02:09 02:17 03:40 MCV MCH MCHC RDW Plt Count MPV Immature Gran % (Auto) Neut % (Auto) Lymph % (Auto) [place] % (Auto) Eos % (Auto) Baso % (Auto) Lymph # (Auto) [place] # (Auto) Eos # (Auto) Baso # (Auto) Abs Immat Gran (auto) Absolute Neuts (auto) Absolute Nucleated RBC Nucleated RBC % (auto) Smear Path Review PT INR O2 Saturation ABG pH at Pt Temp ABG pH (Temp Correct) ABG pCO2 at Pt Temp ABG pCO2 (Temp Corrct ABG pO2 at Pt Temp ABG pO2 (Temp Correct ABG HCO3 ABG Base Excess (Actual) VBG pH 7.17 L* VBG pCO2 99 VBG pO2 127 VBG HCO3 37 H VBG O2 Saturation 98.0 VBG Base Excess 4.2 Carbon Dioxide Anion Gap Estim Creat Clear Calc Estimated GFR POC Glucose Random Glucose Lactic Acid Lactic Acid F/U @ 2Hr 1.1 Calcium Phosphorus Magnesium Total Bilirubin AST ALT Alkaline Phosphatase B-Natriuretic Peptide Total Protein Albumin Urine Color Urine Appearance Urine pH Ur Specific [place] Urine Protein Urine Glucose (UA) Urine Ketones Urine Blood Urine Nitrite Ur Leukocyte Esterase Urine RBC Urine WBC Ur Squamous Epith Cells Urine Bacteria Hyaline Casts Granular Casts Urine Opiates Screen Urine Fentanyl Screen Ur Barbiturates Screen Ur Phencyclidine Scrn Ur Amphetamines Screen U Benzodiazepines Scrn Urine Cocaine Screen U Marijuana (THC) Screen Ethyl Alcohol < 10 COVID-19 (ANNY) COVID-19 Clin Com 10/24/21 10/24/21 10/24/21 03:41 05:59 08:49 MCV MCH MCHC RDW Plt Count MPV Immature Gran % (Auto) Neut % (Auto) Lymph % (Auto) [place] % (Auto) Eos % (Auto) Baso % (Auto) Lymph # (Auto) [place] # (Auto) Eos # (Auto) Baso # (Auto) Abs Immat Gran (auto) Absolute Neuts (auto) Absolute Nucleated RBC Nucleated RBC % (auto) Smear Path Review PT INR O2 Saturation 79.0 ABG pH at Pt Temp 7.15 L* ABG pH (Temp Correct) 7.16 L* ABG pCO2 at Pt Temp 116 H* ABG pCO2 (Temp Corrct 112 H* ABG pO2 at Pt Temp 59 L ABG pO2 (Temp Correct 57 L ABG HCO3 41 H ABG Base Excess (Actual) 6.7 VBG pH 7.18 L* VBG pCO2 87 VBG pO2 178 VBG HCO3 33 H VBG O2 Saturation 99.0 VBG Base Excess 1.2 Carbon Dioxide Anion Gap Estim Creat Clear Calc Estimated GFR POC Glucose 97 Random Glucose Lactic Acid Lactic Acid F/U @ 2Hr Calcium Phosphorus Magnesium Total Bilirubin AST ALT Alkaline Phosphatase B-Natriuretic Peptide Total Protein Albumin Urine Color Urine Appearance Urine pH Ur Specific [place] Urine Protein Urine Glucose (UA) Urine Ketones Urine Blood Urine Nitrite Ur Leukocyte Esterase Urine RBC Urine WBC Ur Squamous Epith Cells Urine Bacteria Hyaline Casts Granular Casts Urine Opiates Screen Urine Fentanyl Screen Ur Barbiturates Screen Ur Phencyclidine Scrn Ur Amphetamines Screen U Benzodiazepines Scrn Urine Cocaine Screen U Marijuana (THC) Screen Ethyl Alcohol COVID-19 (ANNY) COVID-19 Clin Com 10/24/21 10/24/21 10/24/21 09:34 09:34 10:04 MCV 89.1 MCH 25.9 L MCHC 29.0 L RDW 19.3 H Plt Count 247 MPV 9.9 Immature Gran % (Auto) 4.2 H Neut % (Auto) 78.3 H Lymph % (Auto) 8.8 L [place] % (Auto) 8.4 Eos % (Auto) 0.0 Baso % (Auto) 0.3 Lymph # (Auto) 1.6 [place] # (Auto) 1.5 H Eos # (Auto) 0.0 Baso # (Auto) 0.1 Abs Immat Gran (auto) 0.74 H Absolute Neuts (auto) 13.9 H Absolute Nucleated RBC 0.990 H Nucleated RBC % (auto) 5.6 H Smear Path Review PT INR O2 Saturation ABG pH at Pt Temp ABG pH (Temp Correct) ABG pCO2 at Pt Temp ABG pCO2 (Temp Corrct ABG pO2 at Pt Temp ABG pO2 (Temp Correct ABG HCO3 ABG Base Excess (Actual) VBG pH VBG pCO2 VBG pO2 VBG HCO3 VBG O2 Saturation VBG Base Excess Carbon Dioxide 27 Anion Gap 15 Estim Creat Clear Calc 195.0 Estimated GFR 58 POC Glucose 108 Random Glucose 112 Lactic Acid Lactic Acid F/U @ 2Hr Calcium 8.6 Phosphorus 3.5 Magnesium 2.4 Total Bilirubin AST ALT Alkaline Phosphatase B-Natriuretic Peptide Total Protein Albumin 3.3 L Urine Color Urine Appearance Urine pH Ur Specific [place] Urine Protein Urine Glucose (UA) Urine Ketones Urine Blood Urine Nitrite Ur Leukocyte Esterase Urine RBC Urine WBC Ur Squamous Epith Cells Urine Bacteria Hyaline Casts Granular Casts Urine Opiates Screen Urine Fentanyl Screen Ur Barbiturates Screen Ur Phencyclidine Scrn Ur Amphetamines Screen U Benzodiazepines Scrn Urine Cocaine Screen U Marijuana (THC) Screen Ethyl Alcohol COVID-19 (ANNY) COVID-19 Clin Com 10/24/21 10/24/21 10:14 10:14 MCV MCH MCHC RDW Plt Count MPV Immature Gran % (Auto) Neut % (Auto) Lymph % (Auto) [place] % (Auto) Eos % (Auto) Baso % (Auto) Lymph # (Auto) [place] # (Auto) Eos # (Auto) Baso # (Auto) Abs Immat Gran (auto) Absolute Neuts (auto) Absolute Nucleated RBC Nucleated RBC % (auto) Smear Path Review PT INR O2 Saturation ABG pH at Pt Temp ABG pH (Temp Correct) ABG pCO2 at Pt Temp ABG pCO2 (Temp Corrct ABG pO2 at Pt Temp ABG pO2 (Temp Correct ABG HCO3 ABG Base Excess (Actual) VBG pH VBG pCO2 VBG pO2 VBG HCO3 VBG O2 Saturation VBG Base Excess Carbon Dioxide Anion Gap Estim Creat Clear Calc Estimated GFR POC Glucose Random Glucose Lactic Acid Lactic Acid F/U @ 2Hr Calcium Phosphorus Magnesium Total Bilirubin AST ALT Alkaline Phosphatase B-Natriuretic Peptide Total Protein Albumin Urine Color YELLOW Urine Appearance CLEAR Urine pH 5.5 Ur Specific [place] 1.020 Urine Protein TRACE Urine Glucose (UA) NEG Urine Ketones NEG Urine Blood TRACE Urine Nitrite NEG Ur Leukocyte Esterase NEG Urine RBC 1-4 Urine WBC 5-9 H Ur Squamous Epith Cells 1+ Urine Bacteria 1+ Hyaline Casts 1-4 Granular Casts 0-2 Urine Opiates Screen Not Detected Urine Fentanyl Screen Not Detected Ur Barbiturates Screen Not Detected Ur Phencyclidine Scrn Not Detected Ur Amphetamines Screen Not Detected U Benzodiazepines Scrn POSITIVE H Urine Cocaine Screen Not Detected U Marijuana (THC) Screen Not Detected Ethyl Alcohol COVID-19 ([facility]NY) COVID-19 Clin Com Imaging Radiologist's Impressions: Impressions Chest X-Ray 10/24/21 05:30 IMPRESSION: Small pleural effusions. Patchy bilateral airspace opacities could be infectious or inflammatory. Alveolar edema is also a consideration. Chest X-Ray 10/24/21 07:52 IMPRESSION: Endotracheal tube tip approximately 4 cm above the trent. No significant change in diffuse bilateral interstitial and airspace disease. Assessment and Plan (1) Acute respiratory failure with hypoxia and hypercapnia: Status: Acute (2) Sleep apnea: Status: Acute (3) Morbid obesity: Status: Acute (4) Obesity hypoventilation syndrome: Status: Acute (5) Pulmonary aspiration: Status: Acute Assessment: 36-year-old gentleman with super morbid obesity admitted with acute on chronic hypoxic and hypercapnic respiratory failure requiring ventilatory support with possible aspiration component. Plan: Neuro: Acute metabolic encephalopathy likely secondary to hypercapnia, expect to improve with ventilatory support. Cardiac: Likely underlying cardiomyopathy. 2D echocardiogram is pending. Continue with diuresis. Pulmonary: Acute on chronic hypoxic and hypercapnic respiratory failure secondary to underlying super morbid obesity with obesity hypoventilation syndrome and possible aspiration component now requiring ventilatory support. Continue to titrate off as tolerated. Renal: No acute issues. Endo: No acute issues. GI: No acute issues. ID: Empirically covered for possible aspiration pneumonitis versus pneumonia with Unasyn. Heme/Onc: No acute issues. Psych: No acute issues. Miscellaneous: No acute issues. Prophylaxis: Heparin, famotidine Diet: Nothing by mouth Critical care time spent: 60 minutes
[2021-10-24 13:24] LABS: ABG Base Excess 8.8 mmol/L; ABG HCO3 34 mmol/L (22-26); ABG pCO2 48 mmHg (32-45); ABG pCO2 TC 49 mmHg (32-45); ABG pH 7.45 (7.35-7.45); ABG pH TC 7.44 (7.35-7.45); ABG pO2 85 mmHg (83-108); ABG pO2 TC 89 (83-108)
[2021-10-24 13:33] LABS: ABG Refer to POC result
[2021-10-24] MEDS: Albumin Human 25 % 100 ML IV ×2 (13:34→19:42)
[2021-10-24 13:49] LABS: Troponin-I High Sensitivity 125.5 ng/L (<3.5-35.0)
[2021-10-24 17:04] LABS: Anion Gap 14 (12-20); Blood Urea Nitrogen 32 mg/dL (9-16); Calcium 8.9 mg/dL (8.4-10.2); Carbon Dioxide 31 mmol/L (22-29); Chloride 100 mmol/L (96-108); Creatinine Clr Calc Pharmacy 183.1; Estimated Glomerular Filt Rate 54; Glucose Random 95 mg/dL (60-115); Potassium 5.7 mmol/L (3.3-5.1); Sodium 139 mmol/L (135-145)
[2021-10-25] VITALS (30 sets, daily range): BP systolic 112–156; BP diastolic 59–92; PULSE 70–99; RESP 14–22; TEMP 34.9–37.7; O2SAT 88–93; BMI 94.3
[2021-10-25] MEDS: propofoL 1,000 MG/100 ML VIAL 41.24 MG IVCONT ×4 (01:13→06:16)
[2021-10-25] MEDS: Albumin Human 25 % 100 ML IV ×2 (01:15→06:23)
[2021-10-25] MEDS: Ampicillin Sodium/Sulbactam Na 3 GM in 0.9 % Sodium Chloride 100 ML IV ×4 (02:20→20:55)
[2021-10-25 05:32] LABS: VBG Base Excess 12.4 mmol/L; VBG HCO3 39 mmol/L (22-26); VBG pCO2 58 mmHg; VBG pH 7.43 (7.32-7.43); VBG pO2 71 mmHg
[2021-10-25 05:35] LABS: Venous Blood Gas Refer to POC result
[2021-10-25 06:00] LABS: MANUAL DIFF FLAG NO
[2021-10-25 06:04] LABS: Basophils Percent Auto 0.1 % (0-2); Eosinophils Absolute Auto 0.1 X10*3/uL (0.0-0.4); Eosinophils Percent Auto 0.5 % (0-4); Hematocrit 45.5 % (42.0-52.0); Hemoglobin 13.4 g/dl (14.0-18.0); Imm Gran Abs Auto 0.09 X10*3/uL (0.00-0.03); Imm Gran Pct Auto 0.8 % (0.0-0.4); Lymphocytes Absolute Auto 1.3 X10*3/uL (1.2-4.9); Lymphocytes Percent Auto 11.7 % (20-40); Mean Corpuscular HGB Conc 29.5 g/dl (31.0-36.0); Mean Corpuscular Hemoglobin 25.7 pg (27.0-33.0); Mean Corpuscular Volume 87.2 fL (80.0-98.0); Mean Platelet Volume 10.2 fL (9.4-12.4); Monocytes Absolute Auto 0.8 X10*3/uL (0.1-1.2); Monocytes Percent Auto 7.1 % (2-11); NRBC Pct Auto 0.5 /100WBC (0.0-0.2); Neutrophils Absolute Auto 8.8 x10*3/uL (2.0-8.3); Neutrophils Percent Auto 79.8 % (45-73); Platelet Count 230 X10*3/uL (160-400); Red Blood Count 5.22 X10*6/uL (4.60-5.80); Red Cell Distribution Width 18.5 % (11.0-16.0)
[2021-10-25 06:24] LABS: Albumin Level 3.5 g/dL (3.5-5.0); Anion Gap 13 (12-20); Blood Urea Nitrogen 27 mg/dL (9-16); Calcium 9.1 mg/dL (8.4-10.2); Carbon Dioxide 33 mmol/L (22-29); Chloride 99 mmol/L (96-108); Creatinine Clr Calc Pharmacy 255.7; Estimated Glomerular Filt Rate > 60; Glucose Random 83 mg/dL (60-115); Magnesium 2.6 mg/dL (1.6-2.6); Phosphorus 2.4 mg/dL (2.7-4.5); Potassium 4.3 mmol/L (3.3-5.1); Sodium 141 mmol/L (135-145)
[2021-10-25] MEDS: Heparin Sodium,Porcine 5,000 UNIT/ML VIAL 5000 UNIT SUBCUT ×2 (07:46→15:40)
[2021-10-25] MEDS: Chlorhexidine Gluc Oral Rinse 15 ML MOUTHWASH BUCCAL ×2 (07:46→15:40)
[2021-10-25] MEDS: propofoL 1,000 MG/100 ML VIAL 61.87 MG IVCONT ×2 (07:46→09:37)
[2021-10-25] MEDS: Famotidine/PF 20 MG/2 ML VIAL IVPUSH (09:30)
[2021-10-25] MEDS: Furosemide 200 MG in 0.9 % Sodium Chloride 80 ML IVCONT (09:59)
--- NOTE | 2021-10-25 10:52 | P.CONCA_ITS ---
History of Present Illness History of Present Illness Date of Service: 10/25/21 Requesting physician: Emiliano Fernández Chief complaint: CHF Narrative: 36-year-old gentleman with morbid obesity (755 pounds) and his BMI is 94.4 kilogram/meter sq. He is presenting for respiratory failure and had hypoxic and hypercapnic history failure. He has been on ventilator with high oxygen demands and there is concern for aspiration pneumonia. Echocardiography was performed which showed biventricular dysfunction with moderately reduced biventricular function. He is on ventilator right now. He is on Lasix drip. Clinically looks volume overloaded. He is volume overloaded. [facility] Past Medical History Medical History Morbid obesity Sleep apnea Surgical History Surgical History History of nasal surgery Hx of cholecystectomy Social History Social History Household Members: Unknown / Unable to assess Housing: Unknown / Unable to assess Unable to assess alcohol history related to: Unknown Alcohol intake: never Patient Tobacco Use Status: Tobacco use Unknown Use of substances other than those prescribed or required for medical reasons: Unknown Substance Use Type: Marijuana Currently Displaying Signs/Symptoms of Drug Intoxication Withdrawal: No Advance Directives: No Advance Directives Information Provided: No Advance Directives on File: No service: No Current occupational status: previously employed Meds Allergies Allergy/AdvReac Type Severity Reaction Status Date / Time No Known Allergies Allergy Mild N/A Verified 07/14/20 12:40 Active Medications: Current Medications Acetazolamide (Acetazolamide Sodium 500 Mg Vial) 250 mg IVPUSH BID [facility] Stop: 10/28/21 09:01 Chlorhexidine Gluconate (Chlorhexidine Gluc Oral Rinse 15 Ml Mouthwash) 15 ml BUCCAL Q8H [facility] Last Admin: 10/25/21 07:46 Dose: 15 ml Documented by: Dextrose (Dextrose 50 % 25 Gm/50 Ml Syringe) 25 gm IVPUSH Q30M PRN PRN Reason: Nursing Actions in Insulin Infusion Protocol Famotidine (Famotidine/Pf 20 Mg/2 Ml Vial) 20 mg IVPUSH DAILY [facility] Last Admin: 10/25/21 09:30 Dose: 20 mg Documented by: Heparin Sodium (Porcine) (Heparin Sodium,Porcine 5,000 Unit/Ml Vial) 5,000 unit SUBCUT Q8H [facility] Last Admin: 10/25/21 07:46 Dose: 5,000 unit Documented by: Propofol (Diprivan) 1,000 mg in 100 mls @ 0 mls/hr IVCONT .Q0M [facility]; Protocol Last Titration: 10/25/21 09:37 Dose: 40 mcg/kg/min, 48 mls/hr Documented by: Ampicillin Sodium/Sulbactam (Sodium 3 gm/ Sodium Chloride) 100 mls @ 200 mls/hr IV Q6H [facility] Last Infusion: 10/25/21 08:19 Dose: Infused Documented by: Furosemide 200 mg/ Sodium (Chloride) 100 mls @ 1 mls/hr IVCONT .Q24H [facility] Last Admin: 10/25/21 09:59 Dose: 2 mg/hr, 1 mls/hr Documented by: Potassium Phosphate 15 mmol/ (Sodium Chloride) 255 mls @ 63.75 mls/hr IV Q4H [facility] Stop: 10/25/21 16:59 Last Admin: 10/25/21 10:21 Dose: 63.75 mls/hr Documented by: Home Medications Medication Instructions Recorded Confirmed Last Taken Type No Known Home Meds 10/24/21 10/24/21 Unknown History Physical Exam Vital Signs: Vital Signs: Last Vital Signs Temp 99.1 F 10/25/21 10:00 Pulse 78 10/25/21 10:00 Resp 16 10/25/21 10:00 BP 156/92 H 10/25/21 10:00 Pulse Ox 91 L 10/25/21 10:00 BMI result Body Mass Index 94.3 GENERAL APPEARANCE: Morbidly obese. On Vent. NECK: Cannot assess JVD. SKIN: no suspicious lesions, warm and dry. HEART: no murmurs, regular rate and rhythm. LUNGS: Clear to asucultation anteriorly. ABDOMEN: soft, nontender. Distended and has abdominal wall edema. EXTREMITIES: 2+ edema. PERIPHERAL PULSES: equal. NEUROLOGIC: Sedated. Objective Labs and Meds Result diagrams: 10/25/21 05:23 10/25/21 05:23 Lab results: Laboratory Results - last 24 hr 10/24/21 10/24/21 10/24/21 09:34 10:14 10:14 WBC RBC Hgb Hct MCV MCH MCHC RDW Plt Count MPV Immature Gran % (Auto) Neut % (Auto) Lymph % (Auto) [place] % (Auto) Eos % (Auto) Baso % (Auto) Lymph # (Auto) [place] # (Auto) Eos # (Auto) Baso # (Auto) Abs Immat Gran (auto) Absolute Neuts (auto) Absolute Nucleated RBC Nucleated RBC % (auto) O2 Saturation ABG pH at Pt Temp ABG pH (Temp Correct) ABG pCO2 at Pt Temp ABG pCO2 (Temp Corrct ABG pO2 at Pt Temp ABG pO2 (Temp Correct ABG HCO3 ABG Base Excess (Actual) VBG pH VBG pCO2 VBG pO2 VBG HCO3 VBG O2 Saturation VBG Base Excess Sodium Potassium Chloride Carbon Dioxide Anion Gap BUN Creatinine Estim Creat Clear Calc Estimated GFR Random Glucose Calcium Phosphorus Magnesium Troponin I High Sens 125.5 H* Albumin Urine RBC 1-4 Urine WBC 5-9 H Ur Squamous Epith Cells 1+ Urine Bacteria 1+ Hyaline Casts 1-4 Granular Casts 0-2 Urine Opiates Screen Not Detected Urine Fentanyl Screen Not Detected Ur Barbiturates Screen Not Detected Ur Phencyclidine Scrn Not Detected Ur Amphetamines Screen Not Detected U Benzodiazepines Scrn POSITIVE H Urine Cocaine Screen Not Detected U Marijuana (THC) Screen Not Detected 10/24/21 10/24/21 10/25/21 13:18 16:38 05:23 WBC 11.0 H RBC 5.22 Hgb 13.4 L Hct 45.5 MCV 87.2 MCH 25.7 L MCHC 29.5 L RDW 18.5 H Plt Count 230 MPV 10.2 Immature Gran % (Auto) 0.8 H Neut % (Auto) 79.8 H Lymph % (Auto) 11.7 L [place] % (Auto) 7.1 Eos % (Auto) 0.5 Baso % (Auto) 0.1 Lymph # (Auto) 1.3 [place] # (Auto) 0.8 Eos # (Auto) 0.1 Baso # (Auto) 0.0 Abs Immat Gran (auto) 0.09 H Absolute Neuts (auto) 8.8 H Absolute Nucleated RBC 0.060 H Nucleated RBC % (auto) 0.5 H O2 Saturation 97.0 ABG pH at Pt Temp 7.45 ABG pH (Temp Correct) 7.44 ABG pCO2 at Pt Temp 48 H ABG pCO2 (Temp Corrct 49 H ABG pO2 at Pt Temp 85 ABG pO2 (Temp Correct 89 ABG HCO3 34 H ABG Base Excess (Actual) 8.8 VBG pH VBG pCO2 VBG pO2 VBG HCO3 VBG O2 Saturation VBG Base Excess Sodium 139 Potassium 5.7 H Chloride 100 Carbon Dioxide 31 H Anion Gap 14 BUN 32 H Creatinine 1.47 H Estim Creat Clear Calc 183.1 Estimated GFR 54 Random Glucose 95 Calcium 8.9 Phosphorus Magnesium Troponin I High Sens Albumin Urine RBC Urine WBC Ur Squamous Epith Cells Urine Bacteria Hyaline Casts Granular Casts Urine Opiates Screen Urine Fentanyl Screen Ur Barbiturates Screen Ur Phencyclidine Scrn Ur Amphetamines Screen U Benzodiazepines Scrn Urine Cocaine Screen U Marijuana (THC) Screen 10/25/21 10/25/21 05:23 05:24 WBC RBC Hgb Hct MCV MCH MCHC RDW Plt Count MPV Immature Gran % (Auto) Neut % (Auto) Lymph % (Auto) [place] % (Auto) Eos % (Auto) Baso % (Auto) Lymph # (Auto) [place] # (Auto) Eos # (Auto) Baso # (Auto) Abs Immat Gran (auto) Absolute Neuts (auto) Absolute Nucleated RBC Nucleated RBC % (auto) O2 Saturation ABG pH at Pt Temp ABG pH (Temp Correct) ABG pCO2 at Pt Temp ABG pCO2 (Temp Corrct ABG pO2 at Pt Temp ABG pO2 (Temp Correct ABG HCO3 ABG Base Excess (Actual) VBG pH 7.43 VBG pCO2 58 VBG pO2 71 VBG HCO3 39 H VBG O2 Saturation 93.0 VBG Base Excess 12.4 Sodium 141 Potassium 4.3 D Chloride 99 Carbon Dioxide 33 H Anion Gap 13 BUN 27 H Creatinine 1.05 Estim Creat Clear Calc 255.7 Estimated GFR > 60 Random Glucose 83 Calcium 9.1 Phosphorus 2.4 L Magnesium 2.6 Troponin I High Sens Albumin 3.5 Urine RBC Urine WBC Ur Squamous Epith Cells Urine Bacteria Hyaline Casts Granular Casts Urine Opiates Screen Urine Fentanyl Screen Ur Barbiturates Screen Ur Phencyclidine Scrn Ur Amphetamines Screen U Benzodiazepines Scrn Urine Cocaine Screen U Marijuana (THC) Screen Assessment and Plan (1) Acute systolic (congestive) heart failure: Status: Acute 36 gentleman with morbid obesity who presented for respiratory failure. He has been on ventilator. Echocardiography has shown biventricular dysfunction he clinically volume overloaded. I agree with Lasix drip and diuresis. I think is significantly volume overloaded at this point. Blood pressure is elevated and given biventricular dysfunction I think we should start some with dilated therapy. Would start him on lisinopril and titrate based on blood pressure. I think currently we should not start beta-farhana him. If he develops atrial fibrillation I think Cardizem should be avoided given his LV and RV dysfunction. will follow along with you. Procedures Date of Service Date of Service: 10/25/21
--- NOTE | 2021-10-25 10:56 | PM.CCPN ---
Subjective Subjective Date of Service: 10/25/21 Interval History: 36-year-old gentleman with underlying super morbid obesity with BMI of 95, weight 757 lb, admitted on 10/24/2021 after he was found unresponsive by his girlfriend and brought to the emergency room. EMS with transport administered Narcan with minimal improvements. In emergency room patient had transient response to multiple doses of Narcan, however his respiratory status continued to deteriorate and he was intubated and transferred to the intensive care unit. His toxicology screen was negative except for benzodiazepines that he received in the hospital. 2D echocardiogram demonstrated reduced biventricular systolic function. Patient has been started on diuresis with some improvement in his FiO2 and PEEP requirements. No events overnight. Critical Care Time (minutes): 45 Physical Exam Vital Signs: Vital Signs: Last Vital Signs Temp 99.1 F 10/25/21 10:00 Pulse 78 10/25/21 10:00 Resp 16 10/25/21 10:00 BP 156/92 H 10/25/21 10:00 Pulse Ox 91 L 10/25/21 10:00 BMI result Body Mass Index 94.3 Const: General: no acute distress and other (Sedated on the vent) Nutritional Appearance: obese morbidly obese Eyes: Sclerae: sclerae normal EOM: EOMs intact bilaterally Neck: Neck: Yes no lymphadenopathy, Yes trachea midline and Yes supple Resp: Auscultation: crackles (Diffuse bilateral) Cardio: Rate: regular rate Rhythm: regular rhythm Heart sounds: no gallops, no murmurs and no rubs GI: Palpation (GI): Soft to palpation and Other GI palpation findings present ( Nontender) Auscultation: normal bowel sounds Extrem: General: No clubbing, No cyanosis and Yes pedal edema (1+ bilateral) Objective Data Labs CBC & Chem 7: 10/25/21 05:23 10/25/21 05:23 Labs: Laboratory Results - last 24 hr 10/24/21 10/24/21 10/24/21 09:34 10:14 10:14 WBC RBC Hgb Hct MCV MCH MCHC RDW Plt Count MPV Immature Gran % (Auto) Neut % (Auto) Lymph % (Auto) [place] % (Auto) Eos % (Auto) Baso % (Auto) Lymph # (Auto) [place] # (Auto) Eos # (Auto) Baso # (Auto) Abs Immat Gran (auto) Absolute Neuts (auto) Absolute Nucleated RBC Nucleated RBC % (auto) O2 Saturation ABG pH at Pt Temp ABG pH (Temp Correct) ABG pCO2 at Pt Temp ABG pCO2 (Temp Corrct ABG pO2 at Pt Temp ABG pO2 (Temp Correct ABG HCO3 ABG Base Excess (Actual) VBG pH VBG pCO2 VBG pO2 VBG HCO3 VBG O2 Saturation VBG Base Excess Sodium Potassium Chloride Carbon Dioxide Anion Gap BUN Creatinine Estim Creat Clear Calc Estimated GFR Random Glucose Calcium Phosphorus Magnesium Troponin I High Sens 125.5 H* Albumin Urine RBC 1-4 Urine WBC 5-9 H Ur Squamous Epith Cells 1+ Urine Bacteria 1+ Hyaline Casts 1-4 Granular Casts 0-2 Urine Opiates Screen Not Detected Urine Fentanyl Screen Not Detected Ur Barbiturates Screen Not Detected Ur Phencyclidine Scrn Not Detected Ur Amphetamines Screen Not Detected U Benzodiazepines Scrn POSITIVE H Urine Cocaine Screen Not Detected U Marijuana (THC) Screen Not Detected 10/24/21 10/24/21 10/25/21 13:18 16:38 05:23 WBC 11.0 H RBC 5.22 Hgb 13.4 L Hct 45.5 MCV 87.2 MCH 25.7 L MCHC 29.5 L RDW 18.5 H Plt Count 230 MPV 10.2 Immature Gran % (Auto) 0.8 H Neut % (Auto) 79.8 H Lymph % (Auto) 11.7 L [place] % (Auto) 7.1 Eos % (Auto) 0.5 Baso % (Auto) 0.1 Lymph # (Auto) 1.3 [place] # (Auto) 0.8 Eos # (Auto) 0.1 Baso # (Auto) 0.0 Abs Immat Gran (auto) 0.09 H Absolute Neuts (auto) 8.8 H Absolute Nucleated RBC 0.060 H Nucleated RBC % (auto) 0.5 H O2 Saturation 97.0 ABG pH at Pt Temp 7.45 ABG pH (Temp Correct) 7.44 ABG pCO2 at Pt Temp 48 H ABG pCO2 (Temp Corrct 49 H ABG pO2 at Pt Temp 85 ABG pO2 (Temp Correct 89 ABG HCO3 34 H ABG Base Excess (Actual) 8.8 VBG pH VBG pCO2 VBG pO2 VBG HCO3 VBG O2 Saturation VBG Base Excess Sodium 139 Potassium 5.7 H Chloride 100 Carbon Dioxide 31 H Anion Gap 14 BUN 32 H Creatinine 1.47 H Estim Creat Clear Calc 183.1 Estimated GFR 54 Random Glucose 95 Calcium 8.9 Phosphorus Magnesium Troponin I High Sens Albumin Urine RBC Urine WBC Ur Squamous Epith Cells Urine Bacteria Hyaline Casts Granular Casts Urine Opiates Screen Urine Fentanyl Screen Ur Barbiturates Screen Ur Phencyclidine Scrn Ur Amphetamines Screen U Benzodiazepines Scrn Urine Cocaine Screen U Marijuana (THC) Screen 10/25/21 10/25/21 05:23 05:24 WBC RBC Hgb Hct MCV MCH MCHC RDW Plt Count MPV Immature Gran % (Auto) Neut % (Auto) Lymph % (Auto) [place] % (Auto) Eos % (Auto) Baso % (Auto) Lymph # (Auto) [place] # (Auto) Eos # (Auto) Baso # (Auto) Abs Immat Gran (auto) Absolute Neuts (auto) Absolute Nucleated RBC Nucleated RBC % (auto) O2 Saturation ABG pH at Pt Temp ABG pH (Temp Correct) ABG pCO2 at Pt Temp ABG pCO2 (Temp Corrct ABG pO2 at Pt Temp ABG pO2 (Temp Correct ABG HCO3 ABG Base Excess (Actual) VBG pH 7.43 VBG pCO2 58 VBG pO2 71 VBG HCO3 39 H VBG O2 Saturation 93.0 VBG Base Excess 12.4 Sodium 141 Potassium 4.3 D Chloride 99 Carbon Dioxide 33 H Anion Gap 13 BUN 27 H Creatinine 1.05 Estim Creat Clear Calc 255.7 Estimated GFR > 60 Random Glucose 83 Calcium 9.1 Phosphorus 2.4 L Magnesium 2.6 Troponin I High Sens Albumin 3.5 Urine RBC Urine WBC Ur Squamous Epith Cells Urine Bacteria Hyaline Casts Granular Casts Urine Opiates Screen Urine Fentanyl Screen Ur Barbiturates Screen Ur Phencyclidine Scrn Ur Amphetamines Screen U Benzodiazepines Scrn Urine Cocaine Screen U Marijuana (THC) Screen Microbiology Microbiology Results: Microbiology 10/24/21 Unknown Urine Catheterized - Girard Catheter Urine Culture - Final No growth. 10/24/21 02:09 Blood - Venous Blood Culture - Preliminary No growth after 24 hours. 10/24/21 00:55 Blood - Venous Blood Culture - Preliminary No growth after 24 hours. Progress Note: A&P Assessment and plan (1) Acute systolic (congestive) heart failure: Status: Acute (2) Pulmonary aspiration: Status: Acute (3) Obesity hypoventilation syndrome: Status: Acute (4) Acute respiratory failure with hypoxia and hypercapnia: Status: Acute (5) Pulmonary edema: Status: Acute (6) Morbid obesity: Status: Acute (7) Sleep apnea: Status: Acute Assessment and Plan: Assessment: 36-year-old gentleman with super morbid obesity admitted with acute on chronic hypoxic and hypercapnic respiratory failure requiring ventilatory support with possible aspiration component. Plan: Neuro: Acute metabolic encephalopathy likely secondary to hypercapnia, expect to improve with ventilatory support. Cardiac: Acute systolic left and right heart failure. Cardiology service care appreciated. Continue with diuresis. Pulmonary: Acute on chronic hypoxic and hypercapnic respiratory failure secondary to underlying super morbid obesity with obesity hypoventilation syndrome and possible aspiration component now requiring ventilatory support. Continue to titrate off as tolerated. Renal: No acute issues. Endo: No acute issues. GI: No acute issues. ID: Empirically covered for possible aspiration pneumonitis versus pneumonia with Unasyn. Heme/Onc: No acute issues. Psych: No acute issues. Miscellaneous: No acute issues. Prophylaxis: Heparin, famotidine Diet: Nothing by mouth Critical care time spent: 45 minutes Quality Stroke Does the patient have a stroke diagnosis?: No VTE Prior VTE?: No VTE Risk Level:: Medical - moderate - high VTE Device Contraindication: Treatment Not Indicated VTE Drug Contraindication: N/A - Med Ordered
--- NOTE | 2021-10-25 11:37 | MHC.CM.PN ---
Pt is presently intubated in ICU and unable to participate in CM assessment. Call placed to pt's significant other, Lisbet with whom pt resides. Per Lisbet, pt was independent prior to admission: ambulatory without assistive devices, no barriers to care: has vehicle and is able to leave his house without assistance (pt is super morbidly obese >700lbs). Pt has a new PCP appointment with an unknown provider in February at the [facility]. CM to call on Wednesday to verify provider. No HCP on file or at home per family. Pt's sister Chely conferenced in on the call: states pt had a dx of CLEOPATRA years ago but never received a CPAP d/t insurance issues. Pt has been without medical care for many years per Chely. Pt had a 2 part Moderna vax completed in March of 2021. Pt will likely require outpt services like an updated sleep study, referrals to wt management, PCP visit etc. CM to follow for finalization of d/c needs. Family is able to transport.
[2021-10-25] MEDS: propofoL 1,000 MG/100 ML VIAL 48 MG IVCONT ×7 (11:46→23:00)
[2021-10-25 11:53] LABS: Troponin-I High Sensitivity 107.6 ng/L (<3.5-35.0)
[2021-10-25] MEDS: acetaZOLAMIDE sodium 500 MG VIAL 250 MG IVPUSH (21:11)
[2021-10-26] VITALS (28 sets, daily range): BP systolic 137–162; BP diastolic 75–93; PULSE 79–88; RESP 14–21; TEMP 33–37.7; O2SAT 85–91; BMI 92.4
[2021-10-26] MEDS: propofoL 1,000 MG/100 ML VIAL 48 MG IVCONT ×10 (00:55→17:29)
[2021-10-26] MEDS: Chlorhexidine Gluc Oral Rinse 15 ML MOUTHWASH BUCCAL ×4 (00:57→22:25)
[2021-10-26] MEDS: Heparin Sodium,Porcine 5,000 UNIT/ML VIAL 5000 UNIT SUBCUT ×4 (00:57→22:25)
[2021-10-26] MEDS: Ampicillin Sodium/Sulbactam Na 3 GM in 0.9 % Sodium Chloride 100 ML IV ×4 (02:37→19:57)
[2021-10-26 05:40] LABS: VBG Base Excess 9.5 mmol/L; VBG HCO3 36 mmol/L (22-26); VBG pCO2 55 mmHg; VBG pH 7.42 (7.32-7.43); VBG pO2 62 mmHg
[2021-10-26 05:43] LABS: Venous Blood Gas Refer to POC result
[2021-10-26 06:17] LABS: Basophils Percent Auto 0.2 % (0-2); Imm Gran Pct Auto 0.4 % (0.0-0.4); MANUAL DIFF FLAG SCAN; Mean Corpuscular Volume 86.8 fL (80.0-98.0); PLT CLUMP 1; SCAN SMEAR FLAG 1
[2021-10-26 06:19] LABS: Eosinophils Absolute Auto 0.2 X10*3/uL (0.0-0.4); Eosinophils Percent Auto 1.7 % (0-4); Hematocrit 44.6 % (42.0-52.0); Hemoglobin 13.3 g/dl (14.0-18.0); Imm Gran Abs Auto 0.04 X10*3/uL (0.00-0.03); Lymphocytes Absolute Auto 1.4 X10*3/uL (1.2-4.9); Lymphocytes Percent Auto 13.9 % (20-40); Mean Corpuscular HGB Conc 29.8 g/dl (31.0-36.0); Mean Corpuscular Hemoglobin 25.9 pg (27.0-33.0); Mean Platelet Volume 11.4 fL (9.4-12.4); Monocytes Absolute Auto 0.7 X10*3/uL (0.1-1.2); Monocytes Percent Auto 7.6 % (2-11); NRBC Pct Auto 0.2 /100WBC (0.0-0.2); Neutrophils Absolute Auto 7.4 x10*3/uL (2.0-8.3); Neutrophils Percent Auto 76.2 % (45-73); Red Blood Count 5.14 X10*6/uL (4.60-5.80); Red Cell Distribution Width 19.2 % (11.0-16.0)
[2021-10-26 06:20] LABS: White Blood Count 9.8 X10*3/uL (4.8-10.8)
[2021-10-26 06:35] LABS: Platelet Count 189 X10*3/uL (160-400)
[2021-10-26 06:41] LABS: Albumin Level 3.3 g/dL (3.5-5.0); Anion Gap 13 (12-20); Blood Urea Nitrogen 19 mg/dL (9-16); Carbon Dioxide 35 mmol/L (22-29); Chloride 99 mmol/L (96-108); Creatinine Clr Calc Pharmacy 303.9; Estimated Glomerular Filt Rate > 60; Glucose Random 76 mg/dL (60-115); Magnesium 2.4 mg/dL (1.6-2.6); Phosphorus 3.8 mg/dL (2.7-4.5); Potassium 4.3 mmol/L (3.3-5.1); Sodium 143 mmol/L (135-145)
[2021-10-26] MEDS: lisinopriL 2.5 MG TABLET PO ×2 (07:41→09:37)
[2021-10-26] MEDS: acetaZOLAMIDE sodium 500 MG VIAL 250 MG IVPUSH ×2 (07:41→19:58)
[2021-10-26] MEDS: Famotidine/PF 20 MG/2 ML VIAL IVPUSH (07:41)
[2021-10-26 08:05] LABS: SLIDE REVIEW VERIFIED
[2021-10-26] MEDS: Albumin Human 25 % 100 ML IV ×3 (09:14→19:58)
[2021-10-26] MEDS: Furosemide 200 MG in 0.9 % Sodium Chloride 80 ML IVCONT (10:42)
--- NOTE | 2021-10-26 11:06 | P.PNCC_ITS ---
Subjective Subjective Date of Service: 10/26/21 Interval History: ICU day 2 for acute on chronic hypoxic and hypercapnic respiratory failure, biventricular congestive heart failure, encephalopathy. 36-year-old gentleman with underlying super morbid obesity with BMI of 95, weight 757 lb, admitted on 10/24/2021 after he was found unresponsive by his girlfriend and brought to the emergency room. EMS with transport administered Narcan with minimal improvements. In emergency room patient had transient response to multiple doses of Narcan, however his respiratory status continued to deteriorate and he was intubated and transferred to the intensive care unit. His toxicology screen was negative except for benzodiazepines that he received in the hospital. 2D echocardiogram demonstrated reduced biventricular systolic function. Patient has been started on diuresis with some improvement in his FiO2 and PEEP requirements. No events overnight. Critical Care Time (minutes): 45 Physical Exam Vital Signs: Vital Signs: Last Vital Signs Temp 99.5 F 10/26/21 10:00 Pulse 81 10/26/21 10:00 Resp 16 10/26/21 10:00 BP 139/91 H 10/26/21 10:00 Pulse Ox 91 L 10/26/21 10:00 BMI result Body Mass Index 92.4 Const: General: no acute distress and other (Sedated on the vent) Nutritional Appearance: obese morbidly obese Eyes: Sclerae: sclerae normal EOM: EOMs intact bilaterally Neck: Neck: Yes no lymphadenopathy, Yes trachea midline and Yes supple Resp: Effort & Inspection: normal respiratory effort and no respiratory distress Auscultation: clear to auscultation bilaterally Cardio: Rate: regular rate Rhythm: regular rhythm Heart sounds: no gallops, no murmurs and no rubs GI: Palpation (GI): Soft to palpation and Other GI palpation findings present ( Nontender) Auscultation: normal bowel sounds Extrem: General: No clubbing, No cyanosis and Yes pedal edema (2+ bilateral) Objective Data Labs CBC & Chem 7: 10/26/21 05:33 10/26/21 05:30 Labs: Laboratory Results - last 24 hr 10/25/21 10/26/21 10/26/21 05:42 05:30 05:33 WBC 9.8 RBC 5.14 Hgb 13.3 L Hct 44.6 MCV 86.8 MCH 25.9 L MCHC 29.8 L RDW 19.2 H Plt Count 189 MPV 11.4 Immature Gran % (Auto) 0.4 Neut % (Auto) 76.2 H Lymph % (Auto) 13.9 L [place] % (Auto) 7.6 Eos % (Auto) 1.7 Baso % (Auto) 0.2 Lymph # (Auto) 1.4 [place] # (Auto) 0.7 Eos # (Auto) 0.2 Baso # (Auto) 0.0 Abs Immat Gran (auto) 0.04 H Absolute Neuts (auto) 7.4 Absolute Nucleated RBC 0.020 H Nucleated RBC % (auto) 0.2 Smear Tech's Comments VERIFIED VBG pH VBG pCO2 VBG pO2 VBG HCO3 VBG O2 Saturation VBG Base Excess Sodium 143 Potassium 4.3 Chloride 99 Carbon Dioxide 35 H Anion Gap 13 BUN 19 H Creatinine 0.87 Estim Creat Clear Calc 303.9 Estimated GFR > 60 Random Glucose 76 Calcium 9.0 Phosphorus 3.8 Magnesium 2.4 Troponin I High Sens 107.6 H* Albumin 3.3 L 10/26/21 05:34 WBC RBC Hgb Hct MCV MCH MCHC RDW Plt Count MPV Immature Gran % (Auto) Neut % (Auto) Lymph % (Auto) [place] % (Auto) Eos % (Auto) Baso % (Auto) Lymph # (Auto) [place] # (Auto) Eos # (Auto) Baso # (Auto) Abs Immat Gran (auto) Absolute Neuts (auto) Absolute Nucleated RBC Nucleated RBC % (auto) Smear Tech's Comments VBG pH 7.42 VBG pCO2 55 VBG pO2 62 VBG HCO3 36 H VBG O2 Saturation 87.0 VBG Base Excess 9.5 Sodium Potassium Chloride Carbon Dioxide Anion Gap BUN Creatinine Estim Creat Clear Calc Estimated GFR Random Glucose Calcium Phosphorus Magnesium Troponin I High Sens Albumin Microbiology Microbiology Results: Microbiology 10/24/21 02:09 Blood - Venous Blood Culture - Preliminary No growth after 48 hours. 10/24/21 00:55 Blood - Venous Blood Culture - Preliminary No growth after 48 hours. 10/24/21 Unknown Urine Catheterized - Girard Catheter Urine Culture - Final No growth. Progress Note: A&P Assessment and plan (1) Acute systolic (congestive) heart failure: Status: Acute (2) Pulmonary aspiration: Status: Acute (3) Obesity hypoventilation syndrome: Status: Acute (4) Acute respiratory failure with hypoxia and hypercapnia: Status: Acute (5) Acute metabolic encephalopathy: Status: Acute Assessment and Plan: Assessment: 36-year-old gentleman with super morbid obesity admitted with acute on chronic hypoxic and hypercapnic respiratory failure requiring ventilatory sup port with possible aspiration component. Plan: Neuro: Acute metabolic encephalopathy likely secondary to hypercapnia, expect to improve with ventilatory support. Cardiac: Acute systolic left and right heart failure. Cardiology service care appreciated. Continue with diuresis. Pulmonary: Acute on chronic hypoxic and hypercapnic respiratory failure secondary to biventricular congestive heart failure, underlying super morbid obesity with obesity hypoventilation syndrome and possible aspiration component now requiring ventilatory support. Continue to titrate off as tolerated. Renal: No acute issues. Endo: No acute issues. GI: No acute issues. ID: Empirically covered for possible aspiration pneumonitis versus pneumonia with Unasyn. Heme/Onc: No acute issues. Psych: No acute issues. Miscellaneous: No acute issues. Prophylaxis: Heparin, famotidine Diet: Nothing by mouth Critical care time spent: 45 minutes Quality Stroke Does the patient have a stroke diagnosis?: No VTE Prior VTE?: No VTE Risk Level:: Medical - moderate - high VTE Device Contraindication: Treatment Not Indicated VTE Drug Contraindication: N/A - Med Ordered
--- NOTE | 2021-10-26 11:17 | PM.PNCARD ---
Subjective Subjective Date of Service: 10/26/21 Interval history: Sedated ventilated. On Lasix gtt. 100% oxygen on vent. Physical Exam Vital Signs: Last Vital Signs Temp 99.7 F 10/26/21 11:00 Pulse 82 10/26/21 11:00 Resp 16 10/26/21 11:00 BP 156/93 H 10/26/21 11:00 Pulse Ox 88 L 10/26/21 11:00 BMI result Body Mass Index 92.4 GENERAL APPEARANCE:? Morbidly obese.? On Vent. NECK:+ JVD. SKIN: no suspicious lesions, warm and dry. HEART: no murmurs, regular rate and rhythm. LUNGS:? Clear to asucultation anteriorly. ABDOMEN: soft, nontender.? Distended and has abdominal wall edema. EXTREMITIES:? 2+ edema. PERIPHERAL PULSES: equal. NEUROLOGIC: Sedated. Objective Labs and Meds Result diagrams: 10/26/21 05:33 10/26/21 05:30 Lab results: Laboratory Results - last 24 hr 10/25/21 10/26/21 10/26/21 05:42 05:30 05:33 WBC 9.8 RBC 5.14 Hgb 13.3 L Hct 44.6 MCV 86.8 MCH 25.9 L MCHC 29.8 L RDW 19.2 H Plt Count 189 MPV 11.4 Immature Gran % (Auto) 0.4 Neut % (Auto) 76.2 H Lymph % (Auto) 13.9 L [place] % (Auto) 7.6 Eos % (Auto) 1.7 Baso % (Auto) 0.2 Lymph # (Auto) 1.4 [place] # (Auto) 0.7 Eos # (Auto) 0.2 Baso # (Auto) 0.0 Abs Immat Gran (auto) 0.04 H Absolute Neuts (auto) 7.4 Absolute Nucleated RBC 0.020 H Nucleated RBC % (auto) 0.2 Smear Tech's Comments VERIFIED VBG pH VBG pCO2 VBG pO2 VBG HCO3 VBG O2 Saturation VBG Base Excess Sodium 143 Potassium 4.3 Chloride 99 Carbon Dioxide 35 H Anion Gap 13 BUN 19 H Creatinine 0.87 Estim Creat Clear Calc 303.9 Estimated GFR > 60 Random Glucose 76 Calcium 9.0 Phosphorus 3.8 Magnesium 2.4 Troponin I High Sens 107.6 H* Albumin 3.3 L 10/26/21 05:34 WBC RBC Hgb Hct MCV MCH MCHC RDW Plt Count MPV Immature Gran % (Auto) Neut % (Auto) Lymph % (Auto) [place] % (Auto) Eos % (Auto) Baso % (Auto) Lymph # (Auto) [place] # (Auto) Eos # (Auto) Baso # (Auto) Abs Immat Gran (auto) Absolute Neuts (auto) Absolute Nucleated RBC Nucleated RBC % (auto) Smear Tech's Comments VBG pH 7.42 VBG pCO2 55 VBG pO2 62 VBG HCO3 36 H VBG O2 Saturation 87.0 VBG Base Excess 9.5 Sodium Potassium Chloride Carbon Dioxide Anion Gap BUN Creatinine Estim Creat Clear Calc Estimated GFR Random Glucose Calcium Phosphorus Magnesium Troponin I High Sens Albumin Imaging Radiologist's impression: Impressions Chest X-Ray 10/25/21 11:30 IMPRESSION: Satisfactory position of endotracheal tube. Nasogastric tube tip projects over the proximal stomach, tip not seen. Stable enlargement of the cardiac silhouette and bilateral airspace disease. Progress Note: A&P Assessment and plan (1) Acute systolic (congestive) heart failure: Status: Acute (2) Pulmonary aspiration: Status: Acute Assessment and Plan: 36 year old with resp failure on Vent. Echo showing biventricular failure. Volume overloaded. Titrate Lisinopril. Will increase gtt as has significant volume overload. Monitor electrolytes closely. Thank you for allowing me to participate in the care of your patient. Please feel free to contact me if you have any questions. Fall Risk Details Current Medications: Current Medications Acetazolamide (Acetazolamide Sodium 500 Mg Vial) 250 mg IVPUSH BID [facility] Stop: 10/28/21 09:01 Last Admin: 10/26/21 07:41 Dose: 250 mg Documented by: Chlorhexidine Gluconate (Chlorhexidine Gluc Oral Rinse 15 Ml Mouthwash) 15 ml BUCCAL Q8H [facility] Last Admin: 10/26/21 07:42 Dose: 15 ml Documented by: Dextrose (Dextrose 50 % 25 Gm/50 Ml Syringe) 25 gm IVPUSH Q30M PRN PRN Reason: Nursing Actions in Insulin Infusion Protocol Famotidine (Famotidine/Pf 20 Mg/2 Ml Vial) 20 mg IVPUSH DAILY [facility] Last Admin: 10/26/21 07:41 Dose: 20 mg Documented by: Heparin Sodium (Porcine) (Heparin Sodium,Porcine 5,000 Unit/Ml Vial) 5,000 unit SUBCUT Q8H [facility] Last Admin: 10/26/21 07:42 Dose: 5,000 unit Documented by: Propofol (Diprivan) 1,000 mg in 100 mls @ 0 mls/hr IVCONT .Q0M FRANCESCO; Protocol Last Admin: 10/26/21 09:37 Dose: 40 mcg/kg/min, 48 mls/hr Documented by: Ampicillin Sodium/Sulbactam (Sodium 3 gm/ Sodium Chloride) 100 mls @ 200 mls/hr IV Q6H [facility] Last Infusion: 10/26/21 08:33 Dose: Infused Documented by: Furosemide 200 mg/ Sodium (Chloride) 100 mls @ 2.5 mls/hr IVCONT .Q24H [facility] Last Admin: 10/26/21 10:42 Dose: 5 mg/hr, 2.5 mls/hr Documented by: Albumin Human (Kedbumin 25 %) 100 mls @ 100 mls/hr IV Q6H [facility] Stop: 10/27/21 04:14 Last Infusion: 10/26/21 10:21 Dose: Infused Documented by: Lisinopril (Lisinopril 5 Mg Tablet) 5 mg PO DAILY [facility]; Protocol Time Spent With Patient Time: Total time spent is greater than 50% in coordination of care (as documented) at patient's floor/unit and/or counseling patient: Time with patient: 15 - 24 minutes Progress Note: Quality Stroke Does the patient have a stroke diagnosis?: No Procedures Date of Service Date of Service: 10/26/21
[2021-10-26] MEDS: propofoL 1,000 MG/100 ML VIAL 60 MG IVCONT ×3 (19:21→22:25)
[2021-10-26 20:28] LABS: Anion Gap 14 (12-20); Blood Urea Nitrogen 15 mg/dL (9-16); Calcium 9.5 mg/dL (8.4-10.2); Carbon Dioxide 34 mmol/L (22-29); Chloride 98 mmol/L (96-108); Estimated Glomerular Filt Rate > 60; Glucose Random 76 mg/dL (60-115); Potassium 3.8 mmol/L (3.3-5.1); Sodium 142 mmol/L (135-145)
[2021-10-26] MEDS: Potassium Chloride Packet 20 MEQ PACKET 40 MEQ OG-TUBE (22:23)
[2021-10-27] VITALS (30 sets, daily range): BP systolic 43–191; BP diastolic 20–145; PULSE 69–135; RESP 11–27; TEMP 34.9–38.7; O2SAT 59–88; BMI 92.4
[2021-10-27] MEDS: propofoL 1,000 MG/100 ML VIAL 60 MG IVCONT ×7 (00:03→09:12)
[2021-10-27] MEDS: Ampicillin Sodium/Sulbactam Na 3 GM in 0.9 % Sodium Chloride 100 ML IV ×2 (01:47→07:26)
[2021-10-27] MEDS: Albumin Human 25 % 100 ML IV (01:48)
[2021-10-27 04:17] LABS: VBG Base Excess 10.8 mmol/L; VBG HCO3 36 mmol/L (22-26); VBG pCO2 51 mmHg; VBG pH 7.46 (7.32-7.43); VBG pO2 52 mmHg
[2021-10-27 04:21] LABS: Venous Blood Gas Refer to POC result
[2021-10-27 04:32] LABS: MANUAL DIFF FLAG NO
[2021-10-27 04:34] LABS: Basophils Percent Auto 0.2 % (0-2); Eosinophils Absolute Auto 0.3 X10*3/uL (0.0-0.4); Eosinophils Percent Auto 3.1 % (0-4); Hematocrit 44.6 % (42.0-52.0); Hemoglobin 13.4 g/dl (14.0-18.0); Imm Gran Abs Auto 0.03 X10*3/uL (0.00-0.03); Imm Gran Pct Auto 0.3 % (0.0-0.4); Lymphocytes Absolute Auto 1.4 X10*3/uL (1.2-4.9); Lymphocytes Percent Auto 14.2 % (20-40); Mean Corpuscular Hemoglobin 25.7 pg (27.0-33.0); Mean Corpuscular Volume 85.4 fL (80.0-98.0); Mean Platelet Volume 10.2 fL (9.4-12.4); Monocytes Absolute Auto 0.8 X10*3/uL (0.1-1.2); Monocytes Percent Auto 8.4 % (2-11); Neutrophils Absolute Auto 7.4 x10*3/uL (2.0-8.3); Neutrophils Percent Auto 73.8 % (45-73); Platelet Count 185 X10*3/uL (160-400); Red Blood Count 5.22 X10*6/uL (4.60-5.80)
[2021-10-27 04:53] LABS: Albumin Level 3.9 g/dL (3.5-5.0); Anion Gap 15 (12-20); Blood Urea Nitrogen 15 mg/dL (9-16); Calcium 9.7 mg/dL (8.4-10.2); Carbon Dioxide 34 mmol/L (22-29); Chloride 97 mmol/L (96-108); Creatinine Clr Calc Pharmacy 281.2; Estimated Glomerular Filt Rate > 60; Glucose Random 77 mg/dL (60-115); Magnesium 2.3 mg/dL (1.6-2.6); Phosphorus 4.2 mg/dL (2.7-4.5); Sodium 142 mmol/L (135-145)
--- NOTE | 2021-10-27 06:14 | PC.NURSE ---
Tmax 100.6 core. NSR on tele, HR 70-90s. SBP WNL. Lasix gtt running per emar, diuresing well, +3 generlized edema. Sedated on propofol, unable to titrate down d/t vent dyssynchrony. Responds to noxious stimuli, +C/G, reaches for lines/tubes. ETT #8, 25 cm at lip. On AC settings: 14/550/12/100%, SpO2 86-88%, SERIALS LIBRARIAN aware- unable to tolerate higher PEEP d/t peak pressures. Moderate amount of thick cream/pink secretions via inline. Minimal repositioning d/t poor toleration- desaturates to 70%, 3+ max assist for repo. Skin intact- redness/bruising, abscess to abd fold, dsd in place.
[2021-10-27] MEDS: Chlorhexidine Gluc Oral Rinse 15 ML MOUTHWASH BUCCAL (07:26)
[2021-10-27] MEDS: acetaZOLAMIDE sodium 500 MG VIAL 250 MG IVPUSH ×2 (07:26→10:39)
[2021-10-27] MEDS: Heparin Sodium,Porcine 5,000 UNIT/ML VIAL 5000 UNIT SUBCUT (07:27)
[2021-10-27] MEDS: Famotidine/PF 20 MG/2 ML VIAL IVPUSH (07:27)
[2021-10-27] MEDS: lisinopriL 5 MG TABLET PO (07:27)
[2021-10-27] MEDS: Furosemide 200 MG in 0.9 % Sodium Chloride 80 ML IVCONT (10:23)
[2021-10-27] MEDS: fentaNYL citrate/PF 100 MCG/2 ML VIAL IVPUSH (10:39)
[2021-10-27] MEDS: fentaNYL citrate/NS 1,000 MCG/100 ML PLAST..BAG 10 MCG IVCONT (10:39)
--- NOTE | 2021-10-27 10:53 | MHC.CLN ---
PT IS INTUBATED AND SEDATED DAY 3 NPO; TO START TF TODAY DISCUSSED AT ROUNDS RECOMMEND PROMOTE AT MAX GOAL 10ML/HR WITH 3 PROSOURCE TID TO PROVIDE 420KCALS (2004KCALS WITH SEDATION; 22.5KCALS/KG BASED ON IBW), 60G PROTEIN (.8G/KG), 201CC FREE WATER FROM FORMULA. MONITOR TOLERANCE, RESIDUALS AND LYTES SEE ALSO CLINICAL NUTRITION ASSESSMENT
[2021-10-27] MEDS: propofoL 1,000 MG/100 ML VIAL 48 MG IVCONT (11:04)
[2021-10-27] MEDS: Atropine Sulfate 1 MG/10 ML SYRINGE IVPUSH (11:14)
--- NOTE | 2021-10-27 11:20 | CA_ITS ---
Transthoracic Echocardiogram Patient (Last, First, Middle): Florin Mann, Gender: Male Date of : 1985 Age: 36 Procedure Date: 10/27/2021 Procedure Type: Transthoracic Echocardiogram Location: ICU Height: 190.5 cm Weight: 343.37 kg BSA: 3.86 m2 Heart Rate: bpm Medical Office Manager: HAYLEE/KIERAN Referring MD: Fuad Martinez MD Senior Underwriter: Norbert Davenport MD Symptoms: HYPOXIA Study Quality: Technically Difficult ECG Rhythm: Undetermined Conclusions: - 1. Significantly enlarged RV with severely reduced RV systolic function, worse compared to study from 3 days ago 2. Significantly elevated right ventricular systolic pressure Findings Left Ventricle The left ventricle was not well visualized. Right Ventricle The right ventricle was not well visualized. Severely increased right ventricular cavity size. There is severely decreased right ventricular systolic function. Tricuspid Valve Significantly elevated right atrial pressure. Severe pulmonary hypertension is present. Venous The inferior vena cava is severely dilated and does not collapse with inspiration. Prior Study Comparison Changes noted compared to prior study dated: 10/24/2021. RV significantly enlarged with significantly reduced RV systolic function. Measurements Tricuspid Valve TR Pk Grad: 51.00 RA Press: 15.00 RVSP: 66.00 Updated in Other Vendor System with Status of Final Norbert Davenport MD electronically signed on 10/27/2021 3:28:07 PM with status of Final
[2021-10-27] MEDS: EPINEPHrine 5 MG in Dextrose 5 % 250 ML 410.41 MG IVCONT (11:38)
[2021-10-27] MEDS: LORazepam 2 MG/ML VIAL 4 MG IVPUSH (11:56)
[2021-10-27] MEDS: Adenosine 6 MG/2 ML VIAL IVPUSH (12:05)
[2021-10-27 12:29] LABS: VBG Base Excess -1.6 mmol/L; VBG HCO3 29 mmol/L (22-26); VBG pCO2 74 mmHg; VBG pH 7.19 (7.32-7.43); VBG pO2 51 mmHg
[2021-10-27] MEDS: Heparin Sodium,Porcine/1/2NS 25,000 UNIT/250 ML IV.SOLN 10 UNIT IVCONT (12:32)
[2021-10-27 12:40] LABS: Partial Thromboplastin Time 39.4 SEC (24.1-38.0)
[2021-10-27] MEDS: Heparin Sodium,Porcine 5,000 UNIT/ML VIAL 10000 UNIT IVPUSH (12:40)
[2021-10-27 12:46] LABS: Venous Blood Gas Refer to POC result
[2021-10-27] MEDS: Cisatracurium Besylate 20 MG/10 ML VIAL IVPUSH (13:08)
[2021-10-27 13:40] LABS: ABG Base Excess -3.4 mmol/L; ABG HCO3 30 mmol/L (22-26); ABG O2 % Saturation < 30.0 %; ABG pCO2 98 mmHg (32-45); ABG pCO2 TC 105 mmHg (32-45); ABG pH 7.09 (7.35-7.45); ABG pH TC 7.07 (7.35-7.45); ABG pO2 26 mmHg (83-108); ABG pO2 TC 30 (83-108)
[2021-10-27] MEDS: EPINEPHrine 5 MG in Dextrose 5 % 250 ML 2052.04 MG IVCONT (13:56)
[2021-10-27 14:00] LABS: ABG Refer to POC result
[2021-10-27] MEDS: propofoL 1,000 MG/100 ML VIAL 24 MG IVCONT (14:02)
[2021-10-27 14:08] LABS: ABG Base Excess -8.2 mmol/L; ABG HCO3 27 mmol/L (22-26); ABG O2 % Saturation < 30.0 %; ABG pCO2 118 mmHg (32-45); ABG pCO2 TC 127 mmHg (32-45); ABG pH 6.97 (7.35-7.45); ABG pH TC 6.95 (7.35-7.45); ABG pO2 28 mmHg (83-108); ABG pO2 TC 31 (83-108)
[2021-10-27 14:16] LABS: ABG Refer to POC result
--- NOTE | 2021-10-27 14:23 | PM.CCPN ---
Subjective Subjective Date of Service: 10/27/21 Interval History: Mr. Mann was admitted to the ICU on October 24 with acute respiratory failure. The patient is a 36-year-old male with past medical history of super morbid obesity (757 lb, BMI 95) and sleep apnea. Late in the evening of Oct 23, EMS was called to the house after the patient was found unresponsive.? At the scene, the sat was 60% on initial evaluation by EMS.? Narcan 4 mg was administered intranasally with good response.? A NRBFM was applied and the patient was BIBA to the ED early on Oct 24. In the ED the patient was lethargic but able to answer simple questions.? He denied drugs, drinking, and any medical conditions.? Initial sat was 90% on the NRBFM.? The pre the patient became more somnolent in the ED.? He was placed on BiPAP with good response. Labs in the ED were notable for a white count of 14, PT 17/1.5, BUN/creatinine 32/1.6, bicarb 26, potassium 5.7, BNP 390, Lactic acid 3.4, Venous blood gas showed 7.17/99/+4.? Chest x-ray 90s E to interpret, read by the radiologist as showing small pleural effusions; patchy bilateral airspace opacities, possibly infectious, inflammatory, or edema. The patient was given IV fluids and antibiotics.? After the chest x-ray suggested fluid overload, the patient was given Lasix.? The patient failed to respond to multiple doses of IV Narcan.? Eventually the patient was intubated later in the morning by the anesthesia team.? He was then transferred to the ICU. In the ICU, the patient was requiring 100% FiO2 to sat in the low 90s.? Initial troponin was 125 and follow-up the next day was 107. ?He was given empiric Unasyn for possible aspiration. ?At no time was the patient hypotensive.? Echocardiogram was a difficult study.? The left ventricle was poorly visualized and overall function appeared reduced, probably in the range of 30-35%.? The right ventricle was at least moderately dilated with moderately reduced systolic function. ?The IVC was dilated with no inspiratory collapse? RVSP estimate was about 47 mm.? There was no or MR. The patient was diuresed with some transient improvement in his FiO2.? Cardiology recommended afterload reduction and diuresis.? By early yesterday morning, FiO2 was back up to 100%, with the patient satting mid-high 80s.? By this morning sats were down to the mid 80s. Just before 11:00 o'clock this morning,, the sat dropped into the high 70s, and the heart rate dropped into the 40s.? I was immediately in the room, as was Dr. Davenport, who happened to be rounding in the ICU at the time.? The rhythm was Wenckebach, Mobitz type 1.? The patient was given atropine 1mg with little response, then a bolus of epinephrine. At that point, I set up to place a central venous line (see separate procedure) while Dr. Davenport managed the hemodynamics respiratory was in the room hand bagging the patient.? See the nurse's records for complete details of subsequent events.? In brief, the patient?s hemodynamics deteriorated and he required various combinations of epinephrine, Levophed, and phenylephrine, all in high doses.? Low-dose dobutamine was also tried at Dr. Davenport?s recommendation.? The rhythm went through multiple various per mutations including sinus tachycardia, atrial fibrillation, SVT, VT.? The patient was shocked a number of times. The CXR after the CVL was placed showed no PTX, and no significant pneumonia. In the course of placing the central line, it was noted that the venous blood was extremely dark.? The initial venous gas obtained at 12:22 showed 7.19/74/-1.? We were uncertain about the accuracy of the patient's cuff blood pressure measurements.? We also were unable to get good pulse oximetry tracings.? Therefore it was readily apparent that an arterial line was needed (see separate procedure).? I first attempted an axillary line.? The patient had a good a least 6 mm pulsatile artery on venous ultrasound.? But every time I cannulated what appeared to be the artery, I got back dark blood.? Therefore that was abandoned and I went to the radial artery, which was easily visible on ultrasound.? Again I cannulated the artery a number of times and got back dark blood finally I was able to cannulate the artery more proximally and thread the wire.? The arterial cannula was inserted with low-amplitude pulsatile dark blood return.? The pressure transducer was hooked up and a pressure tracing was obtained, proving it was arterial. The 1st blood gas at 13:33 on 100% FiO2 showed 7.07/98/105/-3.? The technical programs manager came in the room and the echo showed a markedly enlarged RV with severely reduced RV systolic function, worse than the prior study.? The left ventricle was not well visualized, but the RV was at least twice if not 3 times the size of the LV.? The RV was basically ballooned out.? Continuous-wave Doppler across the tricuspid valve showed a velocity of 3.6 m/sec.? The IVC measured 3.0 cm, with no inspiratory collapse.? RVSP estimate was 66 mm. Ultimately, the patient's hemodynamics continued to deteriorate.? We did multiple rounds of epinephrine with CPR but the hemodynamics would just deteriorate after each epi wore off, on top of an epinephrine infusion running at 0.4 mg/min.? We gave 100 mg tPA as a last ditch effort in case of a PE.? We never regained good oxygenation.? I spoke with the family multiple times.? We decided further efforts were futile, and therefore resuscitative efforts were ended.? We brought the family into the room during CPR and afterwards.? The patient went asystolic at 14:10. IMPRESSION: 1. Supermorbid obesity 2. Acute right heart failure is the immediate cause of .? Most likely cause is acute or maybe more likely, a subacute PE.? But doesn?t make sense why his troponin went down from Oct 24 to Oct 25.? During the patient?s deterioration, we started him on heparin, and then added full dose TPA when he arrested.? Obviously failed to achieve the desired goal. 3. Acute hypoxemic resp failure.? The CXR doesn?t explain why his oxygenation was so bad.? And I can?t think of anything that would completely prevent oxygenation as happened in the last 2-3 hours, other than PE.? Acute right heart failure doesn?t explain that. 4. [id number] hypercarbic resp failure.? Pickwikian syndrome. Again, see the nurse's records and the code record for events in detail. Critical care time (excluding procedures):? 2:45+ Critical Care Time (minutes): 165 Physical Exam Vital Signs: Vital Signs: Last Vital Signs Temp 101.7 F H 10/27/21 13:00 Pulse 108 H 10/27/21 14:00 Resp 11 L 10/27/21 13:00 BP 176/145 H 10/27/21 14:00 Pulse Ox 59 L 10/27/21 13:00 BMI result Body Mass Index 92.4 Objective Data Labs CBC & Chem 7: 10/27/21 04:08 10/27/21 04:08 Labs: Laboratory Results - last 24 hr 10/26/21 10/27/21 10/27/21 19:37 04:08 04:08 WBC 10.0 RBC 5.22 Hgb 13.4 L Hct 44.6 MCV 85.4 MCH 25.7 L MCHC 30.0 L RDW 19.0 H Plt Count 185 MPV 10.2 Immature Gran % (Auto) 0.3 Neut % (Auto) 73.8 H Lymph % (Auto) 14.2 L [place] % (Auto) 8.4 Eos % (Auto) 3.1 Baso % (Auto) 0.2 Lymph # (Auto) 1.4 [place] # (Auto) 0.8 Eos # (Auto) 0.3 Baso # (Auto) 0.0 Abs Immat Gran (auto) 0.03 Absolute Neuts (auto) 7.4 Absolute Nucleated RBC 0.000 Nucleated RBC % (auto) 0.0 APTT O2 Saturation ABG pH at Pt Temp ABG pH (Temp Correct) ABG pCO2 at Pt Temp ABG pCO2 (Temp Corrct ABG pO2 at Pt Temp ABG pO2 (Temp Correct ABG HCO3 ABG Base Excess (Actual) VBG pH VBG pCO2 VBG pO2 VBG HCO3 VBG O2 Saturation VBG Base Excess Sodium 142 142 Potassium 3.8 4.0 Chloride 98 97 Carbon Dioxide 34 H 34 H Anion Gap 14 15 BUN 15 15 Creatinine 0.85 0.94 Estim Creat Clear Calc 311.0 281.2 Estimated GFR > 60 > 60 Random Glucose 76 77 Calcium 9.5 9.7 Phosphorus 4.2 Magnesium 2.3 Albumin 3.9 10/27/21 10/27/21 10/27/21 04:11 12:22 12:23 WBC RBC Hgb Hct MCV MCH MCHC RDW Plt Count MPV Immature Gran % (Auto) Neut % (Auto) Lymph % (Auto) [place] % (Auto) Eos % (Auto) Baso % (Auto) Lymph # (Auto) [place] # (Auto) Eos # (Auto) Baso # (Auto) Abs Immat Gran (auto) Absolute Neuts (auto) Absolute Nucleated RBC Nucleated RBC % (auto) APTT 39.4 H O2 Saturation ABG pH at Pt Temp ABG pH (Temp Correct) ABG pCO2 at Pt Temp ABG pCO2 (Temp Corrct ABG pO2 at Pt Temp ABG pO2 (Temp Correct ABG HCO3 ABG Base Excess (Actual) VBG pH 7.46 H 7.19 L* VBG pCO2 51 74 VBG pO2 52 51 VBG HCO3 36 H 29 H VBG O2 Saturation 81.0 67.0 VBG Base Excess 10.8 -1.6 Sodium Potassium Chloride Carbon Dioxide Anion Gap BUN Creatinine Estim Creat Clear Calc Estimated GFR Random Glucose Calcium Phosphorus Magnesium Albumin 10/27/21 10/27/21 13:33 14:01 WBC RBC Hgb Hct MCV MCH MCHC RDW Plt Count MPV Immature Gran % (Auto) Neut % (Auto) Lymph % (Auto) [place] % (Auto) Eos % (Auto) Baso % (Auto) Lymph # (Auto) [place] # (Auto) Eos # (Auto) Baso # (Auto) Abs Immat Gran (auto) Absolute Neuts (auto) Absolute Nucleated RBC Nucleated RBC % (auto) APTT O2 Saturation < 30.0 < 30.0 ABG pH at Pt Temp 7.09 L* 6.97 L* ABG pH (Temp Correct) 7.07 L* 6.95 L* ABG pCO2 at Pt Temp 98 H* 118 H* ABG pCO2 (Temp Corrct 105 H* 127 H* ABG pO2 at Pt Temp 26 L* 28 L* ABG pO2 (Temp Correct 30 L* 31 L* ABG HCO3 30 H 27 H ABG Base Excess (Actual) -3.4 -8.2 VBG pH VBG pCO2 VBG pO2 VBG HCO3 VBG O2 Saturation VBG Base Excess Sodium Potassium Chloride Carbon Dioxide Anion Gap BUN Creatinine Estim Creat Clear Calc Estimated GFR Random Glucose Calcium Phosphorus Magnesium Albumin Microbiology Microbiology Results: Microbiology 10/24/21 02:09 Blood - Venous Blood Culture - Preliminary No growth after 48 hours. 10/24/21 00:55 Blood - Venous Blood Culture - Preliminary No growth after 48 hours. 10/24/21 Unknown Urine Catheterized - Girard Catheter Urine Culture - Final No growth. Quality Stroke Does the patient have a stroke diagnosis?: No VTE Prior VTE?: No VTE Risk Level:: Medical - moderate - high VTE Device Contraindication: Treatment Not Indicated VTE Drug Contraindication: N/A - Med Ordered Critical Care Time Critical Care Time (minutes): 180
--- NOTE | 2021-10-27 14:28 | PM.PNCARD ---
Subjective Subjective Date of Service: 10/27/21 Principal diagnosis: Cardiac arrest, acute RV failure, cardiogenic shock Interval history: I was at patient bedside when he started deteriorating with hypoxemia unable to be ventilated including with bagging with hand. Been persistently hypoxemic throughout with increasing oxygen requirement since yesterday. He has been diuresing well up to 8 L since yesterday. When I went at bedside patient then started deteriorating and unable to maintain oxygenation and then started having hypotension with bradycardia. We started ACLS protocol is start him on epinephrine drip. With epinephrine drip patient persisted with tachycardia and maintaining blood pressure but then suddenly again would have hypertension bradycardia after the the epinephrine withdrawn. The start him on norepinephrine drip and patient became significantly tachycardic and hypertensive. Bedside echo was performed which shows significantly increased RV size and significantly reduced RV systolic function with compression of the left ventricle. There is no significant pericardial effusion. Patient persistent with hypertension subsequent developed PEA arrest and despite all medications and efforts patient subsequently . We are at bedside patient for 3-1/2 hours trying to revive and maintain his hemodynamics. Dr. Willingham was able to put a central venous line as well as arterial line. Review of Systems Review of Systems Yes unobtainable due to endotracheal tube Physical Exam Vital Signs: Last Vital Signs Temp 101.7 F H 10/27/21 13:00 Pulse 108 H 10/27/21 14:00 Resp 11 L 10/27/21 13:00 BP 176/145 H 10/27/21 14:00 Pulse Ox 59 L 10/27/21 13:00 BMI result Body Mass Index 92.4 Const General: other (Intubated on mechanical ventilation) Neck Neck: Yes other (Could not evaluate JVP) Cardio Palpation: abnormal PMI displaced PMI Rate: bradycardic Heart sounds: S1 normal heart sound present and S2 normal heart sound present Extrem General: Yes edema Objective Labs and Meds Result diagrams: 10/27/21 04:08 10/27/21 04:08 Lab results: Laboratory Results - last 24 hr 10/26/21 10/27/21 10/27/21 19:37 04:08 04:08 WBC 10.0 RBC 5.22 Hgb 13.4 L Hct 44.6 MCV 85.4 MCH 25.7 L MCHC 30.0 L RDW 19.0 H Plt Count 185 MPV 10.2 Immature Gran % (Auto) 0.3 Neut % (Auto) 73.8 H Lymph % (Auto) 14.2 L [place] % (Auto) 8.4 Eos % (Auto) 3.1 Baso % (Auto) 0.2 Lymph # (Auto) 1.4 [place] # (Auto) 0.8 Eos # (Auto) 0.3 Baso # (Auto) 0.0 Abs Immat Gran (auto) 0.03 Absolute Neuts (auto) 7.4 Absolute Nucleated RBC 0.000 Nucleated RBC % (auto) 0.0 APTT O2 Saturation ABG pH at Pt Temp ABG pH (Temp Correct) ABG pCO2 at Pt Temp ABG pCO2 (Temp Corrct ABG pO2 at Pt Temp ABG pO2 (Temp Correct ABG HCO3 ABG Base Excess (Actual) VBG pH VBG pCO2 VBG pO2 VBG HCO3 VBG O2 Saturation VBG Base Excess Sodium 142 142 Potassium 3.8 4.0 Chloride 98 97 Carbon Dioxide 34 H 34 H Anion Gap 14 15 BUN 15 15 Creatinine 0.85 0.94 Estim Creat Clear Calc 311.0 281.2 Estimated GFR > 60 > 60 Random Glucose 76 77 Calcium 9.5 9.7 Phosphorus 4.2 Magnesium 2.3 Albumin 3.9 10/27/21 10/27/21 10/27/21 04:11 12:22 12:23 WBC RBC Hgb Hct MCV MCH MCHC RDW Plt Count MPV Immature Gran % (Auto) Neut % (Auto) Lymph % (Auto) [place] % (Auto) Eos % (Auto) Baso % (Auto) Lymph # (Auto) [place] # (Auto) Eos # (Auto) Baso # (Auto) Abs Immat Gran (auto) Absolute Neuts (auto) Absolute Nucleated RBC Nucleated RBC % (auto) APTT 39.4 H O2 Saturation ABG pH at Pt Temp ABG pH (Temp Correct) ABG pCO2 at Pt Temp ABG pCO2 (Temp Corrct ABG pO2 at Pt Temp ABG pO2 (Temp Correct ABG HCO3 ABG Base Excess (Actual) VBG pH 7.46 H 7.19 L* VBG pCO2 51 74 VBG pO2 52 51 VBG HCO3 36 H 29 H VBG O2 Saturation 81.0 67.0 VBG Base Excess 10.8 -1.6 Sodium Potassium Chloride Carbon Dioxide Anion Gap BUN Creatinine Estim Creat Clear Calc Estimated GFR Random Glucose Calcium Phosphorus Magnesium Albumin 10/27/21 10/27/21 13:33 14:01 WBC RBC Hgb Hct MCV MCH MCHC RDW Plt Count MPV Immature Gran % (Auto) Neut % (Auto) Lymph % (Auto) [place] % (Auto) Eos % (Auto) Baso % (Auto) Lymph # (Auto) [place] # (Auto) Eos # (Auto) Baso # (Auto) Abs Immat Gran (auto) Absolute Neuts (auto) Absolute Nucleated RBC Nucleated RBC % (auto) APTT O2 Saturation < 30.0 < 30.0 ABG pH at Pt Temp 7.09 L* 6.97 L* ABG pH (Temp Correct) 7.07 L* 6.95 L* ABG pCO2 at Pt Temp 98 H* 118 H* ABG pCO2 (Temp Corrct 105 H* 127 H* ABG pO2 at Pt Temp 26 L* 28 L* ABG pO2 (Temp Correct 30 L* 31 L* ABG HCO3 30 H 27 H ABG Base Excess (Actual) -3.4 -8.2 VBG pH VBG pCO2 VBG pO2 VBG HCO3 VBG O2 Saturation VBG Base Excess Sodium Potassium Chloride Carbon Dioxide Anion Gap BUN Creatinine Estim Creat Clear Calc Estimated GFR Random Glucose Calcium Phosphorus Magnesium Albumin Imaging Radiologist's impression: Impressions Chest X-Ray 10/27/21 11:45 IMPRESSION: New endotracheal tube and enteric tube are likely in good position.. No change in right central venous catheter Bilateral lower lobe haziness is stable. Progress Note: A&P Assessment and plan (1) Cardiac arrest: Status: Acute Assessment and Plan: Cardiac arrest due to pulseless electrical activity secondary to cardiogenic shock due to acute right ventricular failure in a patient who presented with hypoxic respiratory failure with underlying possibly chronic hypoventilation syndrome biventricular failure. Despite all efforts and vasopressors and resuscitative efforts patient succumbed. Patient's family was at bedside and was aware of patient's outcome. Fall Risk Details Current Medications: Current Medications Acetazolamide (Acetazolamide Sodium 500 Mg Vial) 500 mg IVPUSH BID [facility] Chlorhexidine Gluconate (Chlorhexidine Gluc Oral Rinse 15 Ml Mouthwash) 15 ml BUCCAL Q8H [facility] Last Admin: 10/27/21 07:26 Dose: 15 ml Documented by: Dextrose (Dextrose 50 % 25 Gm/50 Ml Syringe) 25 gm IVPUSH Q30M PRN PRN Reason: Nursing Actions in Insulin Infusion Protocol Famotidine (Famotidine/Pf 20 Mg/2 Ml Vial) 20 mg IVPUSH DAILY [facility] Last Admin: 10/27/21 07:27 Dose: 20 mg Documented by: Fentanyl (Fentanyl Citrate/Pf 100 Mcg/2 Ml Vial) 100 mcg IVPUSH Q5M PRN; Protocol PRN Reason: WOB Last Admin: 10/27/21 10:39 Dose: 100 mcg Documented by: Heparin Sodium (Porcine) (Heparin Sodium,Porcine 5,000 Unit/Ml Vial) 5,000 unit SUBCUT Q8H [facility] Last Admin: 10/27/21 07:27 Dose: 5,000 unit Documented by: Heparin Sodium (Porcine) (Heparin Sodium,Porcine 5,000 Unit/Ml Vial) 6,000 unit IVPUSH PROTOCOL BOLUS PRN; Protocol PRN Reason: 40 unit/kg - Heparin Protocol Heparin Sodium (Porcine) (Heparin Sodium,Porcine 5,000 Unit/Ml Vial) 10,000 unit IVPUSH PROTOCOL BOLUS PRN; Protocol PRN Reason: 80 unit/kg - Heparin Protocol Propofol (Diprivan) 1,000 mg in 100 mls @ 0 mls/hr IVCONT .Q0M [facility]; Protocol Last Titration: 10/27/21 14:12 Dose: Infused Documented by: Ampicillin Sodium/Sulbactam (Sodium 3 gm/ Sodium Chloride) 100 mls @ 200 mls/hr IV Q6H [facility] Last Infusion: 10/27/21 07:56 Dose: Infused Documented by: Furosemide 200 mg/ Sodium (Chloride) 100 mls @ 2.5 mls/hr IVCONT .Q24H [facility] Last Infusion: 10/27/21 14:12 Dose: Infused Documented by: Fentanyl (Sublimaze/Ns) 1,000 mcg in 100 mls @ 0 mls/hr IVCONT .Q0M [facility]; Protocol Last Titration: 10/27/21 14:14 Dose: Infused Documented by: Epinephrine 5 mg/ Dextrose 255 mls @ 0 mls/hr IVCONT .Q0M [facility]; Protocol Last Titration: 10/27/21 14:07 Dose: Infused Documented by: Norepinephrine Bitartrate (Levophed) 8 mg in 250 mls @ 0 mls/hr IVCONT .Q0M [facility]; Protocol Last Titration: 10/27/21 14:12 Dose: Infused Documented by: Phenylephrine HCl 40 mg/ (Sodium Chloride) 254 mls @ 0 mls/hr IVCONT .Q0M [facility]; Protocol Last Titration: 10/27/21 14:14 Dose: Infused Documented by: Heparin Sodium/Sodium Chloride () 25,000 unit in 250 mls @ 0 mls/hr IVCONT .Q0M [facility]; Protocol Last Titration: 10/27/21 14:14 Dose: Infused Documented by: Dobutamine HCl/Dextrose (Dobutrex) 1,000 mg in 250 mls @ 0 mls/hr IVCONT .Q0M [facility]; Protocol Last Titration: 10/27/21 14:14 Dose: Infused Documented by: Alteplase, Recombinant 100 mg/ (IV Miscellaneous Supplies) 100 mls @ 50 mls/hr IV .Q2H ONE Stop: 10/27/21 15:39 Last Admin: 10/27/21 13:50 Dose: 50 mls/hr Documented by: Lisinopril (Lisinopril 5 Mg Tablet) 5 mg PO DAILY [facility]; Protocol Last Admin: 10/27/21 07:27 Dose: 5 mg Documented by: Time Spent With Patient Time: Total time spent is greater than 50% in coordination of care (as documented) at patient's floor/unit and/or counseling patient: Time with patient: Greater than 35 minutes (210 minutes at bedside) Progress Note: Quality Stroke Does the patient have a stroke diagnosis?: No Procedures Date of Service Date of Service: 10/27/21
--- NOTE | 2021-10-27 14:58 | PC.NURSE ---
Addendum entered by Aaliyah Ogden RN 10/27/21 15:46: FAMILY CHANGED HOME TO [place] IN [place]. Original Note: PT REPOSITIONED TO LEFT SIDE WITH MAX ASSIST AT APPROX 1045. BOTTOM STOP ATTACHER BEDSIDE TO ASSESS PT MOMENTS AFTER. UPDATE IS BEING GIVEN PTS HR RAPIDLY DROPS TO THE 30S - RHYTHM CHANGED TO CHB. ATROPINE X 1 ADMINISTERED AT 1114. EPI 1 MG X 1 ADMINISTERED AT 1119. EMERGENT TLC PLACEMENT PERFORMED. EMERGENT BEDSIDE ECHO CALLED AND PERFORMED. BEDSIDE CXR DONE. EPI 0.5 MG X 1 ADMINISTERED AT 1129. EPI GTT STARTED - SEE EMAR. TITRATED PER MD/BOTTOM STOP ATTACHER INSTRUCTIONS. LEVOPHED GTT STARTED FOR LOW SBP - SEE EMAR. TITRATED PER MD/BOTTOM STOP ATTACHER INSTRUCTIONS. PROPOFOL DECREASED PER MD - SEE EMAR. ?SEIZURE ACTIVITY AT 1153 - ATIVAN 4MG X 1 ADMINISTERED AT 1156. NO EFFECT. RHYTHM CHANGED TO SVT/RAPID AFIB AT 1154 . SYNCHRONIZED CARDIOVERSION PERFORMED - SHOCKED WITH 200J X 2. NO CHANGE IN RHYTHM. ADENOSINE 6MG IVP X 1 AT 1205 - MINIMAL EFFECT, UNDERLYING RHYTHM SINUS TACHYCARDIA PER BOTTOM STOP ATTACHER. ILA GTT STARTED AT 1230 - SEE EMAR. TITRATED PER MD/CARIDOLOGIST INSTRUCTIONS. PT AND VBG LAB DRAWS DRAWN. HEPARIN GTT STARTED AT 1232 AND BOLUS OF 10,000 UNITS ADMINISTERED PER ORDER 1240. DOBUTAMINE GTT STARTED - SEE EMAR. TITRATED PER MD/BOTTOM STOP ATTACHER INSTRUCTIONS. NIMBEX 20 MG IVP AT 1308. URINE OUTPUT NOTED TO ONLY OUT 50 ML SINCE 1045. MOHAMUD ATTEMPTED AND PLACED TO RIGHT RADIAL. HR BEINGS TO JACEK AGAIN - EPI 1 MG ADMINISTERED AT 1316 - CPR STARTED. SEE CODE BLUE SHEET FOR FULL DOCUMENTATION/MEDICATION ADMINISTERED DURING THIS TIME. 1405 - FAMILY BROUGHT BEDSIDE AND PER FAMILY DECISION CPR STOPPED. 1410 - ASYSTOLE/TOD. [employer] CASE # [id number] DENIED (WINDY). ABUNDANCE OF FAMILY AND GREASE MAKER HEAD BEDSIDE TO SAY GOODBYE. FAMILY TO TAKE BELONGINGS HOME. [facility] HOME WILL BE NOTIFIED BY FAMILY. HOME UNABLE TO COME AT TAKE PT DIRECTLY FROM ROOM AT THIS TIME.
--- NOTE | 2021-10-27 18:56 | W.PM.CCHP ---
Procedures Date of Service Date of Service: 10/27/21 Central Line Placement Right IJ: Central Line Comments: PROCEDURE:? Insertion right internal jugular triple lumen central venous catheter. INDICATION:? central venous access and respiratory monitoring. ANESTHESIA:? Local plus propofol infusion. PROCEDURE:? Vascular ultrasound was used to examine the right neck.? A large compressible internal jugular vein was noted.. The right neck was widely prepped and draped in full sterile fashion.? Local anesthesia was applied to the RIJV insertion site.? Under US guidance, the right IJ vein was cannulated on the 1st pass of the 18 g thin wall needle, w return of dark, non-pulsatile blood.? The wire was threaded without incident.? The 16cm x 7 [place] triple-lumen CVC was advanced into the vein up to the hub via the Seldinger technique without incident.? There was good blood return x3.? The catheter was sutured x3 and a Biopatch and dry sterile dressing were applied. Postop chest x-ray showed the line in good position with no pneumothorax.? The patient tolerated the procedure well w no complications. Consent for Procedure: Emergent-no informed consent obtained Sterile Technique Used: No
--- NOTE | 2021-10-27 18:57 | W.PM.CCHP ---
Procedures Date of Service Date of Service: 10/27/21 Arterial Line Arterial Line Comments: PROCEDURE:? Insertion right radial arterial line. Indications:? Shock and acute respiratory failure. Anesthesia:? Local and propofol sedation. The right axillary artery was approached first.? The artery was identified easily by ultrasound. The axillary area was then prepped and draped in full sterile fashion.? Local anesthesia was infiltrated.? Multiple attempts were made to cannulate the artery under direct ultrasound guidance. The cannulation was not very difficult, but each time the artery appeared to be cannulated with the 20g thin wall, dark blood was returned. Therefore this approach was abandoned. (In retrospect, I probably cannulated the artery at least two or three times. I just did not believe it was arterial because of the very dark color of the blood. Since a larger vein was immediately adjacent to the artery, it seemed as if I was just cannulating the vein each time.) Attention was then turned to the right radial artery. The radial artery was easily identified by ultrasound.? Measured 3-4mm.? The wrist was then prepped and draped.? Local anesthesia was infiltrated.? The artery was cannulated under US guidance with the 20g thin wall. The 1st time I was unable to thread the wire. After multiple passes, I moved more proximally in the wrist. On the 3rd cannulation, the wire passed easily, and the 20 g Arrow arterial cannula was advanced over the wire into the artery without incident.? Minimally but clearly pulsatile dark blood was returned. The cannula was hooked up to the transducer, then sutured in place with 3-0 silk x 3.? Benzoin and a dry sterile dressing were applied. The patient tolerated the procedure well with no complications. Consent: Emergent-no informed consent obtained
--- NOTE | 2021-11-14 14:19 | PM.DDS ---
Discharge Sum: Prov Provider Primary care physician: None Physician Consults: 10/25/21 09:52 Consult to Cardiology Routine Consulting Provider: [facility] [place] Cardiovascular Services Reason for consultation: new onset heart failure Has provider been notified: No Discharge Sum: Diag Contributing Factors (1) Cardiac arrest: Discharge Sum: Summary Date and Time Date of admission: 10/24/21 08:12 Date of : 10/27/21 Time of : 14:10 Summary Details: NOTE DISCHARGE DIAGNOSES: 1. Supermorbid obesity 2. Acute right heart failure 3. Biventricular cardiomyopathy. 4. Acute hypoxemic resp failure. 5. Uboxr-rq-[id number] hypercarbic resp failure -- Pickwikian syndrome. Mr. Mann was a 36-year-old male with past medical history of super morbid obesity (757 lb, BMI 95) and sleep apnea. Late in the evening of Oct 23, EMS was called to the house after the patient was found unresponsive.? At the scene, the sat was 60% on initial evaluation by EMS.? Narcan 4 mg was administered intranasally with good response.? A NRBFM was applied and the patient was BIBA to the ED early on Oct 24. In the ED the patient was lethargic but able to answer simple questions.? He denied drugs, drinking, and any medical conditions.? Initial sat was 90% on the NRBFM.? The pre the patient became more somnolent in the ED.? He was placed on BiPAP with good response. Labs in the ED were notable for a white count of 14, PT 17/1.5, BUN/creatinine 32/1.6, bicarb 26, potassium 5.7, BNP 390, Lactic acid 3.4, Venous blood gas showed 7.17/99/+4.? Chest x-ray 90s E to interpret, read by the radiologist as showing small pleural effusions; patchy bilateral airspace opacities, possibly infectious, inflammatory, or edema. The patient was given IV fluids and antibiotics.? After the chest x-ray suggested fluid overload, the patient was given Lasix.? The patient failed to respond to multiple doses of IV Narcan.? Eventually the patient was intubated later in the morning by the anesthesia team.? He was then transferred to the ICU. In the ICU, the patient was requiring 100% FiO2 to sat in the low 90s.? Initial troponin was 125 and follow-up the next day was 107.? He was given empiric Unasyn for possible aspiration.? At no time was the patient hypotensive.? Echocardiogram was a difficult study.? The left ventricle was poorly visualized and overall function appeared reduced, probably in the range of 30-35%.? The right ventricle was at least moderately dilated with moderately reduced systolic function.? The IVC was dilated with no inspiratory collapse? RVSP estimate was about 47 mm.? There was no or MR. The patient was diuresed with some transient improvement in his FiO2.? Cardiology recommended afterload reduction and diuresis.? By early yesterday morning, FiO2 was back up to 100%, with the patient satting mid-high 80s.? By Oct 26 sats were down to the mid 80s. On the morning of Oct 27, the sat dropped into the high 70s, and the heart rate dropped into the 40s.? The rhythm was Wenckebach, Mobitz type 1.? The patient was given atropine 1mg with little response, then a bolus of epinephrine. At that point, the patient?s hemodynamics deteriorated.? A CVL was placed and he was given various combinations of epinephrine, Levophed, and phenylephrine, all in high doses.? Low-dose dobutamine was also tried.? The rhythm went through multiple permutations including sinus tachycardia, atrial fibrillation, SVT, VT.? The patient was shocked a number of times.? The CXR after the CVL was placed showed no PTX, and no significant pneumonia. In the course of placing the central line, it was noted that the venous blood was extremely dark.? The initial CVBG obtained at 12:22 showed 7.19/74/-1.? We were uncertain about the accuracy of the patient's cuff blood pressure measurements.? We also were unable to get good pulse oximetry tracings.? An arterial line was placed after mult attempts.? There was a pulsatile tracing, but the blood was dark. The first ABG on 100% FiO2 showed 7.07/98/105/-3.? The rehabilitation technician came in the room and the echo showed a markedly enlarged RV with severely reduced RV systolic function, worse than the prior study.? The left ventricle was not well visualized, but the RV was at least twice if not 3 times the size of the LV.? The RV was ballooned out.? Continuous-wave Doppler across the tricuspid valve showed a velocity of 3.6 m/sec.? The IVC measured 3.0 cm, with no inspiratory collapse.? RVSP estimate was 66 mm. Ultimately, the patient's hemodynamics continued to deteriorate.? We did multiple rounds of epinephrine with CPR but the hemodynamics would just deteriorate after each epi wore off, on top of an epinephrine infusion running at 0.4 mg/min.? We gave 100 mg tPA as a last ditch effort in case of a PE.? We never regained good oxygenation.? I spoke with the family multiple times.? We decided further efforts were futile, and therefore resuscitative efforts were ended.? We brought the family into the room during CPR and afterwards.? The patient went asystolic at 14:10. Additional Data Attending physician: Emiliano Fernández MD
== END 2021-10-27 15:38 | disposition expired | DRG 133 ==
LOC: HO.ED 06:53 → HO.EDOVER 08:33 → HO.ICU 10:27
PROVIDERS: Anesthesiology; Registered Nurse Community Health; Student in an Organized Health Care Education/Training Program; Admitting Provider Internal Medicine Pulmonary Disease; Emergency Provider Emergency Medicine Emergency Medical Services; Visit Provider Internal Medicine Pulmonary Disease
DX: J96.21 Acute and chronic respiratory failure with hypoxia (principal); I26.99 Other pulmonary embolism without acute cor pulmonale; J69.0 Pneumonitis due to inhalation of food and vomit; R57.0 Cardiogenic shock; I50.21 Acute systolic (congestive) heart failure; G93.41 Metabolic encephalopathy; I47.1 Supraventricular tachycardia; I50.82 Biventricular heart failure; J96.22 Acute and chronic respiratory failure with hypercapnia; E66.2 Morbid (severe) obesity with alveolar hypoventilation; Z68.45 Body mass index [BMI] 70 or greater, adult; Z78.1 Physical restraint status; Z20.822 Contact with and (suspected) exposure to COVID-19
CPT/HCPCS: 36415; 36600; 71045; 80048; 80053; 80307; 81001; 82040; 82077; 82803; 82947; 83605; 83735; 83880; 84100; 84484; 85025; 85610; 85730; 87040; 87086; 87635; 93005; 93306; 93308; 94002; 94003; 94640; 94644; 94660; 99285; J0153; J0171; J0295; J0461; J1250; J1940; J2060; J2250; J2370; J2405; J2543; J2997; J3010; P9047